=== PATIENT | female | born 1980 | race American Indian/Alaskan Native ===

== ENCOUNTER 2018-09-28 17:10 | Emergency (ER) | payer BC, OTHER ==
[~2018-09-28] VITALS: Ht 162.6 cm; Wt 109.1 kg
[2018-09-28 17:51] LABS: BASOPHILS # (AUTO) 0.1 X10'3 (0-0.2); BASOPHILS % (AUTO) 0.7 % (0-1); EOSINOPHILS # (AUTO) 0.1 X10'3 (0-0.9); EOSINOPHILS % (AUTO) 0.7 % (0-6); HEMATOCRIT 44.8 % (35.0-45.0); HEMOGLOBIN 14.9 g/dl (12.0-16.0); MEAN CORPUSCULAR HEMOGLOBIN 30.4 PG (27.0-31.0); MEAN CORPUSCULAR HGB CONC 33.2 g/dL (33.0-36.5); MEAN CORPUSCULAR VOLUME 91.8 FL (78-98); MEAN PLATELET VOLUME 7.3 FL (7.4-10.4); MONOCYTES # (AUTO) 0.9 X10'3 (0-0.9); MONOCYTES % (AUTO) 6.9 % (2-12); NEUTROPHILS # (AUTO) 9.1 X10'3 (1.8-7.7); NEUTROPHILS % (AUTO) 68.7 % (42-75); PLATELET COUNT 310 X10'3 (140-440); RED BLOOD COUNT 4.88 X10'6 (4.20-5.60); RED CELL DISTRIBUTION WIDTH 13.2 % (11.5-14.5); WHITE BLOOD COUNT 13.2 X10'3 (4.5-11.0)
[2018-09-28] MEDS ORDERED: LORazepam 2 mg/ml vial IV ONE (18:00)
[2018-09-28] MEDS ORDERED: normal saline 1000ML IV soln IVB ONE (18:00)
[2018-09-28 18:10] LABS: PARTIAL THROMBOPLASTIN TIME 29 SECONDS (22-32)
[2018-09-28 18:26] LABS: ALANINE AMINOTRANSFERASE 23 U/L (12-78); ALBUMIN 3.7 G/DL (3.4-5.0); ALBUMIN/GLOBULIN RATIO 0.9 (1.1-1.5); ALKALINE PHOSPHATASE 87 IU/L (46-116); ANION GAP 15 (8-16); ASPARTATE AMINO TRANSFERASE 17 U/L (10-37); BILIRUBIN,TOTAL 0.5 MG/DL (0.1-1.0); BLOOD UREA NITROGEN 7 MG/DL (7-18); CALCIUM 9.5 MG/DL (8.5-10.1); CHLORIDE 101 MMOL/L (99-107); GLUCOSE 101 MG/DL (70-104); POTASSIUM 3.9 MMOL/L (3.5-5.1); SODIUM 136 MMOL/L (135-145); TOTAL CARBON DIOXIDE 19.8 MMOL/L (24-32); eGFR 62 ML/MIN
[2018-09-28 18:59] VITALS: BP 126/87
[2018-09-28 19:16] LABS: CLARITY,URINE CLEAR (Clear); COLOR,URINE YELLOW (Yellow); GLUCOSE, URINE NEGATIVE (Neg); KETONES,URINE 15 mg/dl (Neg); LEUKOCYTE ESTERASE ,URINE NEGATIVE (Neg); NITRITES, URINE NEGATIVE (Neg); OCCULT BLOOD,URINE TRACE-INTACT (Neg); PROTEIN,URINE NEGATIVE (Neg); UROBILINOGEN,URINE 0.2 E.U/dL (0.2-1.0)
[2018-09-28 19:23] LABS: BACTERIA,URINE NONE SEEN /HPF (Neg); RBC,URINE 0-2 /HPF (0-2); SQUAMOUS EPITHELIAL CELL,UR FEW /LPF (FEW); UA COLLECTION TYPE CLN CATCH MIDSTREAM; WBC,URINE NONE SEEN /HPF (0-4)
[2018-09-28 19:32] LABS: URINE HCG NEGATIVE (NEG)
== END 2018-09-28 20:14 | disposition home or self-care (01) ==
LOC: ER 17:11
DX: F10.239 Alcohol dependence with withdrawal, unspecified (principal); N93.9 Abnormal uterine and vaginal bleeding, unspecified; R00.0 Tachycardia, unspecified; R00.2 Palpitations; R20.0 Anesthesia of skin; R79.1 Abnormal coagulation profile; F12.90 Cannabis use, unspecified, uncomplicated; F17.200 Nicotine dependence, unspecified, uncomplicated; Y90.9 Presence of alcohol in blood, level not specified
CPT/HCPCS: 36415; 71046; 80053; 81001; 81025; 84484; 85025; 85610; 85730; 93005; 96374; 99284; J2060; J7030

== ENCOUNTER 2019-07-01 13:16 | Outpatient (CLI) | payer MEDICAID, OTHER | END 2019-07-01 23:59 | disposition home or self-care (01) | LOC: LAB 13:16 | PROVIDERS: ATTEND Obstetrics & Gynecology Hospice and Palliative Medicine | DX: Z34.00 Encounter for supervision of normal first pregnancy, unspecified trimester (principal) | CPT/HCPCS: 36415; 84702 ==

== ENCOUNTER 2019-07-03 14:18 | Outpatient (CLI) | payer MEDICAID | END 2019-07-03 23:59 | disposition home or self-care (01) | LOC: LAB 14:18 | PROVIDERS: ATTEND Obstetrics & Gynecology Hospice and Palliative Medicine | DX: Z32.01 Encounter for pregnancy test, result positive (principal) | CPT/HCPCS: 36415; 84702 ==

== ENCOUNTER 2019-07-19 08:33 | Emergency (ER) | payer BC, MEDICAID, OTHER ==
[~2019-07-19] VITALS: Ht 162.6 cm; Wt 114.4 kg
[2019-07-19 08:35] VITALS: BP 158/111
[2019-07-19] MEDS ORDERED: acetaminophen 325mg tablet PO ONE (09:40)
[2019-07-19] MEDS ORDERED: TAM75C PO (09:55)
[2019-07-19] MEDS ORDERED: BENZ-16 PO (09:55)
== END 2019-07-19 10:06 | disposition home or self-care (01) ==
LOC: ER 08:34
DX: J11.1 Influenza due to unidentified influenza virus with other respiratory manifestations (principal); F12.90 Cannabis use, unspecified, uncomplicated; Z72.89 Other problems related to lifestyle; Z79.899 Other long term (current) drug therapy
CPT/HCPCS: 87502; 87503; 99283

== ENCOUNTER 2020-03-26 07:26 | Emergency (ER) | payer OTHER ==
[~2020-03-26] VITALS: Ht 162.6 cm; Wt 114.0 kg
--- NOTE | 2020-03-26 07:58 | NUR ---
Discussed pt's pain w/ stacey Cooley; new order for Zofran and Morphine received.
[2020-03-26] MEDS ORDERED: ondansetron/PF 4mg/2ml inj IV ONE (08:00)
[2020-03-26] MEDS ORDERED: morphine 4 MG/ML inj SYRINge IV ONE (08:00)
[2020-03-26 08:08] LABS: BASOPHILS # (AUTO) 0.1 X10'3 (0-0.2); BASOPHILS % (AUTO) 0.7 % (0-1); EOSINOPHILS # (AUTO) 0.2 X10'3 (0-0.9); EOSINOPHILS % (AUTO) 1.9 % (0-6); HEMATOCRIT 42.9 % (35.0-45.0); HEMOGLOBIN 14.5 g/dl (12.0-16.0); LYMPHOCYTES # (AUTO) 3.7 X10'3 (1.1-4.8); MEAN CORPUSCULAR HEMOGLOBIN 33.2 PG (27.0-31.0); MEAN CORPUSCULAR HGB CONC 33.8 g/dL (33.0-36.5); MEAN CORPUSCULAR VOLUME 98.4 FL (78-98); MEAN PLATELET VOLUME 7.5 FL (7.4-10.4); MONOCYTES # (AUTO) 0.8 X10'3 (0-0.9); MONOCYTES % (AUTO) 8.7 % (2-12); NEUTROPHILS % (AUTO) 45.7 % (42-75); PLATELET COUNT 277 X10'3 (140-440); RED BLOOD COUNT 4.36 X10'6 (4.20-5.60); RED CELL DISTRIBUTION WIDTH 13.4 % (11.5-14.5); WHITE BLOOD COUNT 8.6 X10'3 (4.5-11.0)
[2020-03-26] MEDS ORDERED: normal saline 1000ML IV soln IVB ONE (08:20)
[2020-03-26] MEDS ORDERED: pantoprazole 40 MG vial IV ONE (08:20)
[2020-03-26 08:35] LABS: CLARITY,URINE CLEAR (Clear); COLOR,URINE YELLOW (Yellow); GLUCOSE, URINE NEGATIVE (Neg); KETONES,URINE NEGATIVE (Neg); LEUKOCYTE ESTERASE ,URINE NEGATIVE (Neg); NITRITES, URINE NEGATIVE (Neg); OCCULT BLOOD,URINE LARGE (Neg); PROTEIN,URINE NEGATIVE (Neg); URINE HCG NEGATIVE (NEG); UROBILINOGEN,URINE 0.2 E.U/dL (0.2-1.0)
[2020-03-26 08:38] LABS: UA COLLECTION TYPE STRAIGHT CATH
[2020-03-26 08:39] LABS: BACTERIA,URINE FEW /HPF (Neg); MUCUS STRANDS FEW /LPF (Neg); RBC,URINE 20-50 /HPF (0-2); SQUAMOUS EPITHELIAL CELL,UR MODERATE /LPF (FEW); WBC,URINE 0-4 /HPF (0-4)
[2020-03-26 08:52] LABS: ALANINE AMINOTRANSFERASE 50 U/L (12-78); ALBUMIN 3.3 G/DL (3.4-5.0); ALBUMIN/GLOBULIN RATIO 0.8 (1.1-1.5); ALKALINE PHOSPHATASE 82 IU/L (46-116); ANION GAP 12 (8-16); BILIRUBIN,TOTAL 0.3 MG/DL (0.1-1.0); BLOOD UREA NITROGEN 8 MG/DL (7-18); BUN/CREATININE RATIO 8.8 (6.6-38.0); CALCIUM 8.3 MG/DL (8.5-10.1); CHLORIDE 105 MMOL/L (99-107); CREATININE 0.91 MG/DL (0.40-0.90); GLUCOSE 141 MG/DL (70-104); LIPASE 128 U/L (73-393); SODIUM 140 MMOL/L (135-145); TOTAL CARBON DIOXIDE 23.2 MMOL/L (24-32); TOTAL PROTEIN 7.5 G/DL (6.4-8.2); eGFR 69 ML/MIN
[2020-03-26 08:53] LABS: POTASSIUM 4.1 MMOL/L (3.5-5.1)
[2020-03-26 09:03] LABS: ASPARTATE AMINO TRANSFERASE 50 U/L (10-37)
[2020-03-26] MEDS ORDERED: ketorolac tromethamine 15mg/ml inj. IV ONE (09:25)
[2020-03-26 11:15] VITALS: BP 119/87
[2020-03-26] MEDS ORDERED: FLO0.4C PO (11:22)
[2020-03-26] MEDS ORDERED: HYDR-3965 PO (11:22)
[2020-03-26] MEDS ORDERED: ONDA8TAB13 PO (11:22)
[2020-03-26] MEDS ORDERED: tamsulosin 0.4mg capsule PO SCH (11:25)
[2020-03-26] MEDS ORDERED: morphine 4 MG/ML inj SYRINge IM ONE (11:30)
[2020-03-26] MEDS ORDERED: NORE0.3520 PO (18:53)
[2020-03-26] MEDS ORDERED: LISI-604 PO (20:17)
[2020-03-26] MEDS ORDERED: RISP1TAB3 PO (20:17)
== END 2020-03-26 12:05 | disposition home or self-care (01) ==
LOC: ER 07:26
DX: N20.0 Calculus of kidney (principal); I10 Essential (primary) hypertension; F17.200 Nicotine dependence, unspecified, uncomplicated; F12.10 Cannabis abuse, uncomplicated; Z91.040 Latex allergy status; Z79.899 Other long term (current) drug therapy
CPT/HCPCS: 36415; 74176; 80053; 81001; 81025; 83690; 85025; 96372; 96374; 96375; 99285; C9113; J1885; J2270; J2405; J7030; 99284

== ENCOUNTER 2020-03-29 18:12 | Emergency (ER) | payer OTHER ==
[~2020-03-29] VITALS: Ht 162.6 cm; Wt 117.7 kg
[~2020-03-29 18:12] MED LIST: FLO0.4C PO; HYDR-3965 PO; LISI-604 PO; NORE0.3520 PO; ONDA8TAB13 PO; RISP1TAB3 PO
[2020-03-29 18:37] VITALS: BP 163/111
[2020-03-29 18:54] LABS: BASOPHILS % (AUTO) 0.3 % (0-1); EOSINOPHILS # (AUTO) 0.1 X10'3 (0-0.9); EOSINOPHILS % (AUTO) 0.5 % (0-6); HEMATOCRIT 40.6 % (35.0-45.0); HEMOGLOBIN 13.8 g/dl (12.0-16.0); LYMPHOCYTES # (AUTO) 1.4 X10'3 (1.1-4.8); LYMPHOCYTES % (AUTO) 10.8 % (21-51); MEAN CORPUSCULAR HEMOGLOBIN 33.5 PG (27.0-31.0); MEAN CORPUSCULAR HGB CONC 33.9 g/dL (33.0-36.5); MEAN PLATELET VOLUME 7.2 FL (7.4-10.4); MONOCYTES % (AUTO) 7.2 % (2-12); NEUTROPHILS # (AUTO) 10.8 X10'3 (1.8-7.7); NEUTROPHILS % (AUTO) 81.2 % (42-75); PLATELET COUNT 274 X10'3 (140-440); WHITE BLOOD COUNT 13.4 X10'3 (4.5-11.0)
[2020-03-29 19:00] LABS: CLARITY,URINE CLEAR (Clear); COLOR,URINE STRAW (Yellow); GLUCOSE, URINE NEGATIVE (Neg); KETONES,URINE NEGATIVE (Neg); LEUKOCYTE ESTERASE ,URINE NEGATIVE (Neg); NITRITES, URINE NEGATIVE (Neg); OCCULT BLOOD,URINE TRACE-INTACT (Neg); PH,URINE 5.5 (4.8-8.0); PROTEIN,URINE NEGATIVE (Neg); UROBILINOGEN,URINE 0.2 E.U/dL (0.2-1.0)
[2020-03-29 19:02] LABS: URINE HCG NEGATIVE (NEG)
[2020-03-29 19:10] LABS: ALANINE AMINOTRANSFERASE 38 U/L (12-78); ALBUMIN 3.4 G/DL (3.4-5.0); ALBUMIN/GLOBULIN RATIO 0.8 (1.1-1.5); ALKALINE PHOSPHATASE 78 IU/L (46-116); ANION GAP 11 (8-16); ASPARTATE AMINO TRANSFERASE 33 U/L (10-37); BILIRUBIN,TOTAL 0.8 MG/DL (0.1-1.0); BLOOD UREA NITROGEN 7 MG/DL (7-18); BUN/CREATININE RATIO 6.4 (6.6-38.0); CALCIUM 9.1 MG/DL (8.5-10.1); CHLORIDE 98 MMOL/L (99-107); GLUCOSE 106 MG/DL (70-104); LIPASE 55 U/L (73-393); POTASSIUM 3.8 MMOL/L (3.5-5.1); SODIUM 135 MMOL/L (135-145); TOTAL CARBON DIOXIDE 26.3 MMOL/L (24-32); TOTAL PROTEIN 7.9 G/DL (6.4-8.2); eGFR 55 ML/MIN
[2020-03-29 19:24] LABS: UA COLLECTION TYPE CLN CATCH MIDSTREAM
[2020-03-29 19:25] LABS: BACTERIA,URINE NONE SEEN /HPF (Neg); RBC,URINE 0-2 /HPF (0-2); SQUAMOUS EPITHELIAL CELL,UR FEW /LPF (FEW); WBC,URINE NONE SEEN /HPF (0-4)
--- NOTE | 2020-03-29 19:37 | NUR ---
PT IS RESTING QUIETLY ON GURNEY, WAITING TO BE EVALUATED
[2020-03-29] MEDS ORDERED: oxyCODONE/APAP 5-325mg tablet PO ONE (20:30)
[2020-03-29] MEDS ORDERED: IBUP-1985 PO (21:55)
[2020-03-29] MEDS ORDERED: OXYC-145 PO (21:55)
[2020-03-29] MEDS ORDERED: [UNRECOGNIZED DRUG - CODE] PO (22:08)
== END 2020-03-29 22:13 | disposition home or self-care (01) ==
LOC: ER 18:13
DX: R10.84 Generalized abdominal pain (principal); I10 Essential (primary) hypertension; F12.90 Cannabis use, unspecified, uncomplicated; Z72.89 Other problems related to lifestyle; Z91.040 Latex allergy status; Z79.899 Other long term (current) drug therapy
CPT/HCPCS: 36415; 76775; 80053; 81001; 81025; 83690; 85025; 99284

== ENCOUNTER 2023-05-21 14:14 | Emergency (ER) | payer BC, OTHER ==
[~2023-05-21] VITALS: Ht 162.6 cm; Wt 105.5 kg
[~2023-05-21 14:14] MED LIST changes: -FLO0.4C PO; -HYDR-3965 PO; +IBUP-1985 PO; -LISI-604 PO; +LISI5TAB22 PO; +OXYC-145 PO; -RISP1TAB3 PO; +RISP1TAB98 PO; +[UNRECOGNIZED DRUG - CODE] PO
[2023-05-21] MEDS ORDERED: IBUP-1984 PO (16:51)
[2023-05-21] MEDS ORDERED: AZIT-21 PO (16:51)
[2023-05-21] MEDS ORDERED: PRED20TA PO (16:51)
[2023-05-21 17:06] LABS: STREP A SCREEN NEGATIVE (Neg)
[2023-05-21 17:08] VITALS: BP 148/108; PULSE 94; RESP 16; TEMP 98.3; O2SAT 99
== END 2023-05-21 17:12 | disposition home or self-care (01) ==
LOC: ER 14:15
DX: J03.90 Acute tonsillitis, unspecified (principal); Z20.822 Contact with and (suspected) exposure to COVID-19; I10 Essential (primary) hypertension; Z91.040 Latex allergy status; Z79.899 Other long term (current) drug therapy
CPT/HCPCS: 36415; 87081; 87502; 87503; 87811; 87880; 99283

== ENCOUNTER 2024-01-18 03:05 | Inpatient (IN) | payer BC, MEDICAID, OTHER ==
[~2024-01-18] VITALS: Ht 162.6 cm; Wt 93.8 kg
[~2024-01-18 03:05] MED LIST changes: +ONDA-245 PO; -ONDA8TAB13 PO; +RISP-31 PO; -RISP1TAB98 PO
--- NOTE | 2024-01-18 03:17 | NUR ---
POISON CONTROL CONTACTED BY DESTINEE VASQUEZ. SUPPORTIVE CARE, EKG AND LABS REQUESTED BY POISON CONTROL. RECOMMENDED- FOR EKG- WATCH FOR QT PROLONGATION, TACHYCARDIA, BRADYCARDIA, HYPOTENSION AND HYPERTENSION.
--- NOTE | 2024-01-18 03:21 | NUR ---
WHEN SPEAKING WITH PT- SHE STATES SHE OVERDOSED TO "SEE WHAT WOULD HAPPEN AND DID NOT CARE IF SHE SHE DOES NOT WANT TO LIVE" AND HAS HAD SUICIDAL THOUGHTS IN THE PAST BUT NO ATTEMPTES OTHER THAN CUTTING. AWARE.
--- NOTE | 2024-01-18 03:22 | NUR ---
NEED FOR 1:1 SITTER- CHARGE NOTIFIED.
--- NOTE | 2024-01-18 03:29 | NUR ---
PATIENTS HOME MEDICATIONS TRAZADONE, LORAZAPAM, AND BUSPAR GIVEN TO MOTHER BY LEAD SUPPLY WORKER.
[2024-01-18 03:43] LABS: BASOPHILS # (AUTO) 0.1 X10'3 (0-0.2); BASOPHILS % (AUTO) 0.9 % (0-1); EOSINOPHILS # (AUTO) 0.1 X10'3 (0-0.9); EOSINOPHILS % (AUTO) 1.1 % (0-6); HEMATOCRIT 45.3 % (35.0-45.0); HEMOGLOBIN 15.2 g/dl (12.0-16.0); LYMPHOCYTES # (AUTO) 4.4 X10'3 (1.1-4.8); LYMPHOCYTES % (AUTO) 42.5 % (21-51); MEAN CORPUSCULAR HEMOGLOBIN 30.9 PG (27.0-31.0); MEAN CORPUSCULAR HGB CONC 33.6 g/dL (33.0-36.5); MEAN CORPUSCULAR VOLUME 91.9 FL (78-98); MEAN PLATELET VOLUME 7.5 FL (7.4-10.4); MONOCYTES # (AUTO) 0.6 X10'3 (0-0.9); MONOCYTES % (AUTO) 5.5 % (2-12); NEUTROPHILS # (AUTO) 5.2 X10'3 (1.8-7.7); PLATELET COUNT 270 X10'3 (140-440); RED BLOOD COUNT 4.93 X10'6 (4.20-5.60); RED CELL DISTRIBUTION WIDTH 13.9 % (11.5-14.5); WHITE BLOOD COUNT 10.3 X10'3 (4.5-11.0)
[2024-01-18 03:51] LABS: ALANINE AMINOTRANSFERASE 15 U/L (12-78); ALBUMIN 3.8 G/DL (3.4-5.0); ALKALINE PHOSPHATASE 86 IU/L (46-116); ANION GAP 15 (8-16); ASPARTATE AMINO TRANSFERASE 15 U/L (10-37); BILIRUBIN,TOTAL 0.3 MG/DL (0.1-1.0); BLOOD UREA NITROGEN 11 MG/DL (7-18); BUN/CREATININE RATIO 13.6 (10.0-20.0); CALCIUM 8.4 MG/DL (8.5-10.1); CHLORIDE 105 MMOL/L (99-107); CREATININE 0.81 MG/DL (0.40-0.90); ETHANOL 253 MG/DL (<10); GLUCOSE 84 MG/DL (70-104); MAGNESIUM 2.1 MG/DL (1.5-2.4); POTASSIUM 3.8 MMOL/L (3.5-5.1); SALICYLATE 3.6 MG/DL (4.0-20.0); SODIUM 143 MMOL/L (135-145); TOTAL PROTEIN 7.8 G/DL (6.4-8.2); eCRCL 90 ML/MIN; eGFR 77 ML/MIN
[2024-01-18 03:56] LABS: ACETAMINOPHEN < 2.0 UG/ML (10-30)
[2024-01-18] MEDS: normal saline 1000ml 1,000 ML IV ONE (05:51)
[2024-01-18 06:44] LABS: URINE HCG NEGATIVE (NEG)
[2024-01-18 07:00] LABS: URINE AMPHETAMINE SCREEN NEGATIVE (Neg); URINE BARBITUATE SCREEN NEGATIVE (Neg); URINE BENZODIAZEPINES SCREEN NEGATIVE (Neg); URINE CANNABINOID SCREEN NEGATIVE (Neg); URINE COCAINE SCREEN NEGATIVE (Neg); URINE METHADONE SCREEN NEGATIVE (Neg); URINE OPIATE SCREEN NEGATIVE (Neg); URINE PHENCYCLIDINE SCREEN NEGATIVE (Neg)
[2024-01-18] MEDS ORDERED: BUSP10TA11 PO (07:21)
[2024-01-18] MEDS ORDERED: TRAZ-251 PO (07:21)
[2024-01-18] MEDS ORDERED: LORA-268 PO (07:21)
[2024-01-18] MEDS ORDERED: SEMA1PEN3 SUBCUT (07:24)
[2024-01-18] MEDS ORDERED: NALTREXONE (07:26)
[2024-01-18] MEDS ORDERED: METF-1203 PO (07:28)
[2024-01-18] MEDS ORDERED: CETI10TA19 PO (07:29)
--- NOTE | 2024-01-18 09:54 | NUR ---
PER KIMBERLY FROM POISON CONTROL, REPEAT EKG FOR NEW QTC. IF TRENDING DOWNWARD FROM INITIAL EKG QTC OF 517 PATIENT OK TO BE CLEARED. CURRENT QTC 445. PER RAS RICHARDS, PATIENT IS MEDICALLY CLEARED.
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
--- NOTE | 2024-01-18 12:26 | NUR ---
Patient continues to sleep in supine position. Respirations are even and nonlabored. Patient in view of nursing station. Will continue to monitor.
--- NOTE | 2024-01-18 13:24 | NUR ---
Patient walked independently from restroom back to bed. Patient wants water, which will be provided.
--- NOTE | 2024-01-18 13:30 | NUR ---
relieving RN for lunch, pt is resting quietly on bed, sipping water, kimberly well no n/v
--- NOTE | 2024-01-18 13:39 | NUR ---
pt is eating lunch,
--- NOTE | 2024-01-18 14:16 | NUR ---
[facility] here evaluating patient.
--- NOTE | 2024-01-18 16:00 | NUR ---
IV taken out of right forearm.
--- NOTE | 2024-01-18 17:14 | NUR ---
Patient up to the restroom.
--- NOTE | 2024-01-18 17:44 | NUR ---
Patient's mother Naheed is at bedside talking with patient.
--- NOTE | 2024-01-18 19:15 | NUR ---
Patient interviewed 1:1 at bedside. Patient is oriented X4. Patients mother is at bedside. Patient is very cooperative. She makes direct eye contact. She speaks in a normal voice and rhythm. Patient complains of depression. She denies S/I tonight. She denies H/I, she states no hallucinations. She complains of a "foggy," brain sensation. Some indigestion present along with anxiety. Pepsid and Librium will be given. Report will be given to CHRISTINA Bustamante in Behavioral Health.
[2024-01-18] MEDS: chlordiazePOXIDE 25mg capsule PO ONE (20:08)
[2024-01-18] MEDS: famotidine 20mg tablet PO ONE (20:09)
[2024-01-18] MEDS ORDERED: loperamide 2mg capsule PO PRN (21:00)
[2024-01-18] MEDS: triamcinolone acetonide 0.5% cream 15gm TP SCH (21:00)
[2024-01-18] MEDS ORDERED: acetaminophen 325mg tablet PO PRN (21:00)
[2024-01-18 21:31] VITALS: BP 145/102; PULSE 88; RESP 20; TEMP 97.8; O2SAT 88
[2024-01-18 21:46] VITALS: RESP 20; O2SAT 95
[2024-01-18] MEDS: traZODone 50mg tablet PO SCH (22:30)
[2024-01-18] MEDS: acetaminophen 325mg tablet PO PRN (22:30)
[2024-01-18] MEDS: cetirizine 10mg tablet PO SCH (22:30)
[2024-01-18] MEDS: ondansetron 4mg rapidly disintigrating tab PO PRN (22:30)
[2024-01-18] MEDS: LORazepam 1 MG tablet PO PRN (22:30)
[2024-01-18] MEDS: SEMAGLUTIDE 1 MG/0.75 ML SQ SCH (22:45)
[2024-01-18] MEDS ORDERED: CETI10TA14 PO (22:49)
--- NOTE | 2024-01-18 22:58 | NUR ---
Nursing Admission Note: The patient is a 43 year old female admitted from the ER on a 5150 hold for danger to self. She has relapsed on ETOH and her BA in the ER was 253. while intoxicated she took an overdose of her prescription medications, Buspar, Trazodone, and Ativan. She stated her current stressors are a recent divorce, being unemployed, being a single mother to her 16 year old son and poor relationship with her biological father. She denied that she felt suicidal on admit but stated she has been feeling suicidal off and on even when she is not drinking. She denies previous psychiatric inpatient admissions. She was alert, oriented and cooperative. CIWA score on admit was 17 and ativan one mg given. She reports hx of a withdrawal seizure in May of this year.
[2024-01-19] VITALS (8 sets, daily range): BP systolic 132–146; BP diastolic 91–104; PULSE 69–86; RESP 16–18; TEMP 97.8–98.8; O2SAT 92–99
[2024-01-19] MEDS ORDERED: risperiDONE 0.5mg tablet PO SCH (08:00)
[2024-01-19] MEDS ORDERED: busPIRone 5mg tablet PO SCH (08:00)
[2024-01-19 08:24] LABS: CHOL/HDL RATIO 3.3 (0.00-4.99); CHOLESTEROL 140 MG/DL (0-200); HDL CHOLESTEROL 43 MG/DL (35-60); LDL CHOLESTEROL 69 MG/DL (50-100); TRIGLYCERIDES 164 MG/DL (20-135)
[2024-01-19 08:30] LABS: HEMOGLOBIN A1C 4.8 % (4.5-6.2)
[2024-01-19] MEDS: nicotine 21mg patch - 24 hr TD SCH (09:41)
[2024-01-19] MEDS: metFORMIN 500mg tablet PO ONE (09:41)
[2024-01-19] MEDS: busPIRone 5mg tablet PO SCH (09:42)
[2024-01-19] MEDS: risperiDONE 0.5mg tablet PO SCH (09:42)
[2024-01-19] MEDS: magnesium hydroxide 30ml (MOM) UD suspension PO PRN (16:07)
[2024-01-19] MEDS: chlordiazePOXIDE 5mg capsule PO SCH (16:07)
--- NOTE | 2024-01-19 16:51 | NUR ---
Nursing Progress Note: Sarah Problems: Depression, ETOH withdrawl, constipation Interventions: Performed 1:1 nursing assessment, provided medication administration, education, monitoring, active listening/therapeutic communication, Q15 minute rounding. Maintained a safe and supportive environment. Perform CIWA Q4. Response: Patient is pleasant and cooperative this shift, she is compliant with scheduled medication and 1:1 assessment. CIWA being performed Q4 hours, she reports that she is experiencing "some" anxiety/agitation, tremors, mild itching, headache, and visual disturbances. Librium introduced today, no AR/SE to note. Patient denies SI/HI, AVH, and paranoia at this time. She does complain of 6/10 depression and is interested in receiving an antidepressant and outpatient rehab for ETOH. Patient attended group on the patio and snack/meals in the community room. She is active on the unit while occasionally retreating to her room. Plan: Requires interruption of current crisis in a safe and therapeutic environment with possible medication adjustments. Addendum: 01/19/24 at 1742 by Marquita Thao RN SMITH documentation: I have reviewed and agree with all interventions, assessments performed and documented by SMITH Schuster. Addendum: 08/25/24 at 1743 by Marquita Thao RN SMITH documentation: I have reviewed and agree with all interventions, assessments performed and documented by SMITH Schuster.
--- NOTE | 2024-01-19 18:30 | NUR ---
Patient reports mild headache, intermittent. Declines PRN throughout this shift
[2024-01-19] MEDS: thiamine 100mg tablet PO SCH (20:28)
[2024-01-19] MEDS: traZODone 50mg tablet PO SCH (20:29)
[2024-01-19] MEDS: cetirizine 10mg tablet PO SCH (20:31)
[2024-01-19] MEDS: docusate sod 100mg capsule PO SCH (20:31)
[2024-01-19] MEDS: metFORMIN 500mg tablet PO SCH (20:32)
--- NOTE | 2024-01-19 23:19 | NUR ---
Nursing Progress Note: Problems: Depression, anxiety, alcohol withdrawals Interventions: One to one with the patient to assess severity of depressive symptoms and self harm risk. CIWA done. Medication administration and assessed for med side effects. She is on q 1 hour nursing rounds and q 15 minute safety checks. PRN Ativan given for vital sign elevation. Response: The patient has been up on the unit and has had some socialization with others. She was pleasant and cooperative with the evening nursing assessment. She continues to have tremors in her hands. Her HR was 102 and her BP was 144/108. She appears neatly groomed and appropriately dressed. She had a visit from her mother that she felt went well. She showered before going to bed for the night. She stated that she felt her day had gone well but that she had some fatigue from the medications. She stated her mood was depressed and hopeless and added that she is regretting choices she has made in her life. She denies active suicidal thoughts and that she does want to live but also at times has thoughts that she wants to go to sleep and not wake up. Psychotic symptoms are denied. She reports moderate anxiety. Plan: Continue plan of care.
[2024-01-20] VITALS (7 sets, daily range): BP systolic 121–156; BP diastolic 86–111; PULSE 81–91; RESP 14–20; TEMP 97.7–98.1; O2SAT 97–100
[2024-01-20] MEDS: multivitamins, therapeutics tablet PO SCH (08:42)
[2024-01-20] MEDS: folic acid 1mg tablet PO SCH (08:43)
[2024-01-20] MEDS: cloNIDine 0.1 mg tablet PO PRN (16:49)
[2024-01-20] MEDS: NICOTINE POLACRILEX 2 MG LOZENGE BC PRN (16:52)
--- NOTE | 2024-01-20 18:05 | NUR ---
Nursing Progress Note: Problems: ETOH withdrawal, constipation, depression Interventions: 1:1 assessment, establishment of rapport, therapeutic conversation, active listening, medication administration/education/monitoring, ensured contract for safety, constipation management, CIWA Q4H, blood pressure control, provided distraction, direction, positive reinforcement, and Q15 min safety checks. Response: Pt was up for breakfast. Pt was cooperative with her medications. Pt continues on CIWA Q4H. Pt continues on routine Librium. Pt's CIWA scores today: 6, 2, 2. Pt's bilateral hand tremors improved throughout the day. Pt's BP was elevated at 156/111 at 1200, she received her routine Librium. Rechecked pt's BP after an hour, it was down to 138/100. Pt was given PRN Ativan 1 mg at 1401 with good effect. Obtained order from Dr Shore for Clonidine 0.1 mg BID PRN Diastolic BP > 90. Pt's BP at 1630 was 135/93. She was given PRN Clonidine 0.1 mg at 1649 along with PRN MOM and a nicotine lozenge. Pt reports her last BM was 3 days ago. She was started on Colace 100 mg BID yesterday, she was given prune juice. Pt attended group and was present in the milieu socializing with peers and watching TV in the rec room. Pt rated her depression today at a 2/10. Pt denied SI/HI/AH/VH. Pt indicated that she is still experiencing severe alcohol cravings. She was on a medication at home Vivitrol injection to reduce alcohol cravings which she states was not effective. Plan: Crisis interruption, detox from ETOH, continued CIWA Q4H, monitor B/P, continued medications adjustments and monitoring, constipation management.
[2024-01-20] MEDS: chlordiazePOXIDE 25mg capsule PO SCH (20:09)
[2024-01-20] MEDS: divalproex sod 125mg tablet.DR PO SCH (20:10)
[2024-01-20] MEDS: thiamine 100mg tablet PO SCH (20:10)
--- NOTE | 2024-01-20 22:48 | NUR ---
Nursing Progress Note: Problems: Depression, anxiety, alcohol withdrawals Interventions: One to one with the patient to assess severity of depressive symptoms and self harm risk. CIWA done. Medication administration and assessed for med side effects. She is on q 1 hour nursing rounds and q 15 minute safety checks. PRN Ativan given for vital sign elevation.
--- NOTE | 2024-01-20 22:49 | NUR ---
Nursing Progress Note: Problems: Depression, anxiety, alcohol withdrawals Interventions: One to one with the patient to assess severity of depressive symptoms and self harm risk. CIWA done. Medication administration and assessed for med side effects. She is on q 1 hour nursing rounds and q 15 minute safety checks. She was started on colace and was given prune juice for complaints of constipation Response: The patient has been up on the unit. She is well groomed. She is social and friendly with staff and peers. She reports that her mood has improved and she is not feeling suicidal. She is making long range goals for her future and can verbalize things she wants to live for. Her anxiety is moderate. She is alert and oriented. No complaints of A/V hallucinations. Hand tremors less severe. She is medication compliant. Plan: Continue plan of care.
[2024-01-21] MEDS: LORazepam 0.5 MG tablet PO PRN (00:08)
[2024-01-21 07:00] VITALS: RESP 16; O2SAT 95
[2024-01-21 08:00] VITALS: BP 123/83; PULSE 79; RESP 16; TEMP 97; O2SAT 95
--- NOTE | 2024-01-21 16:35 | NUR ---
Nursing Progress Note: Sarah Problems: Depression, ETOH withdrawl, constipation Interventions: Performed 1:1 nursing assessment, provided medication administration, education, monitoring, active listening/therapeutic communication, Q15 minute rounding. Maintained a safe and supportive environment. Perform CIWA Q4. Response: Received this Pt in bed sleeping w/o distress at shift change. She was cooperative with vitals (wnl). Pt ate meals we;; and was reading and watching TV in Rec. room in the morning. Pt took scheduled meds throughout the day w/o issue. Pt received MOM r/t constipation with no results.She is pleasant and interactive while respectful and is willing to share thoughts. Pt is future oriented and wants to seek sobriety and recovery. Pt had CIWA scores of 5,4 today. Pt experiencing minor anxiety and tremors only. She did not request or need PRN meds for w/d sx's as of the writing of this note. Pt denies SI/HI/AH and VH at this time. She wants to get into recovery in an in-pt setting. She spoke of nbad experience at [facility] and perhaps [facility] could be where she goes. She spoke of her son who is staying with her mom. Pt visited with her mom this morning and it appeared supportive. She finished her book and showered in the afternoon. Plan: Requires interruption of current crisis in a safe and therapeutic environment with possible medication adjustments.
[2024-01-21 19:00] VITALS: RESP 18; O2SAT 98
[2024-01-21 20:00] VITALS: BP 113/85; PULSE 98; RESP 18; TEMP 97.3; O2SAT 98
[2024-01-21] MEDS: traZODone 50mg tablet PO PRN (21:05)
--- NOTE | 2024-01-22 03:52 | NUR ---
Nursing Progress Note: Sarah Problems: Depression, ETOH withdrawal, constipation Interventions: Performed 1:1 nursing assessment, provided medication administration, education, monitoring, active listening/therapeutic communication, Q15 minute rounding. Hourly nursing rounds. Maintained a safe and supportive environment. Perform CIWA Q4. Response: Pt is calm and cooperative at start of shift. Pt sits in rec room watching TV with other peers. Pt scored 2 on the 8pm CIWA. Score at midnight is also 2. Pt denies SI/HI/AVH. Pt endorses depression and some anxiety. Pt looking to get into a rehab facility for her drinking. Pt is medication compliant with PRN Trazodone 100mg and Ativan 0.5mg. Pt stated she has not had a BM for 4 days. Pt encouraged to drink water and ambulate. Pt is on Colace. Encouraged pt to take a suppository tomorrow morning. Monitor for safety. Plan: Requires interruption of current crisis in a safe and therapeutic environment with possible medication adjustments.
[2024-01-22 07:30] VITALS: BP 119/80; PULSE 84; RESP 18; TEMP 97.3; O2SAT 97
[2024-01-22] MEDS: aripiprazole 5mg tablet PO SCH (07:53)
[2024-01-22] MEDS: bisacodyl 10mg suppository rectal RC STA (09:04)
--- NOTE | 2024-01-22 15:16 | NUR ---
Initial: Pt admit for OD, major depression, and EtOH abuse, currently receiving routine Thiamine, Folic acid, and MVI. Pt has been eating well on 75 g CHO controlled diet, documented with 100% PO intake of meals. Per EMR pt with T2DM though A1c 4.8% with BG 84-87 mg/dL since admit. Message left for RN with recommendation for diet change to regular, diet has since been liberalized. LBM 01/21 documented as large, previously constipated with LBM 01/16. Pt started on routine Colace BID 01/18 and has received PRN MoM 01/18-01/20 and received one time Dulcolax suppository today. Pt also received prune juice per criminal judge. No nutrition intervention implemented at this time. Will continue to follow and make recommendations as appropriate. Recommendations: 1) Continue regular diet; A1c 4.8% 2) Routine and PRN bowel care given previous constipation x 5 days per EMR 3) Weekly scaled weights Addendum: 01/22/24 at [address] Amended: Links added.
--- NOTE | 2024-01-22 17:24 | NUR ---
Nursing Progress Note: Sarah Problems: Depression, ETOH withdrawal, Constipation Interventions: Performed 1:1 nursing assessment, provided medication administration, education, monitoring, active listening/therapeutic communication, Q15 minute rounding. Maintained a safe and supportive environment. Response: RN received pt. asleep in bed at change of shift. CIWA scored 0. Pt. awoke and took medication and ate breakfast in community room. CIWA discontinued by provider. 1:1 done at bedside, pt. denies SI/HI, A/V hallucinations. Pt. c/o constipation and given suppository with good effect. Pt. isolated to her room most of the AM. Pt. did attend groups. Pt. observed socializing with peers. Plan: Requires interruption of current crisis in a safe and therapeutic environment with possible medication adjustments.
[2024-01-22 19:00] VITALS: RESP 16; O2SAT 99
[2024-01-22 20:00] VITALS: BP 131/100; PULSE 95; RESP 16; TEMP 98.2; O2SAT 99
[2024-01-22] MEDS: mirtazapine 15mg tablet PO SCH (20:43)
[2024-01-22] MEDS: benzocaine (Anbesol) 12ml bottle MM PRN (22:30)
[2024-01-23] VITALS (8 sets, daily range): BP systolic 131–149; BP diastolic 100–113; PULSE 92–95; RESP 14–16; TEMP 97.5–98.3; O2SAT 97–99
--- NOTE | 2024-01-23 02:46 | NUR ---
Nursing Progress Note: Sarah Problems: Depression, ETOH withdrawal, Tooth Pain Interventions: Performed 1:1 nursing assessment, provided medication administration, education, monitoring, active listening/therapeutic communication, Q15 minute rounding. Maintained a safe and supportive environment. Response: Pt is received in her room where she is reading a book. Pt is calm and pleasant. Pt was taken off CIWA protocol. Pt stated she is feeling much better. Pt had a suppository on day shift and had good results except now pt is complaining of hemorrhoids. "I had a little blood when I wiped". Detasseling Crew Supervisor explained that this can happen. Pt denies feeling suicidal and had a very good conversation with her son. "My son turns 16 on 02/04". Pt does still feel depressed, mostly about how she failed her son. Pt was encouraged to be proud of herself for wanting to get help and go into a treatment program. Pt's BP was 131/100 and received Catapres 0.1mg with good results. Pt c/o tooth pain. "I think I need a root canal". Pt asked for topical cream. Tylenol 650mg given and ordered obtained for Anbesol. Pt attended snack but keep mostly to herself. Monitor for safety. Plan: Requires interruption of current crisis in a safe and therapeutic environment with possible medication adjustments.
[2024-01-23 09:59] LABS: BILIRUBIN,URINE NEGATIVE (Neg); CLARITY,URINE CLOUDY (Clear); COLOR,URINE YELLOW (Yellow); GLUCOSE, URINE NEGATIVE (Neg); KETONES,URINE NEGATIVE (Neg); LEUKOCYTE ESTERASE ,URINE LARGE (Neg); NITRITES, URINE NEGATIVE (Neg); OCCULT BLOOD,URINE MODERATE (Neg); PROTEIN,URINE TRACE mg/dl (Neg); UA COLLECTION TYPE NON-SPECIFIED; UROBILINOGEN,URINE 0.2 E.U/dL (0.2-1.0)
[2024-01-23 10:09] LABS: BACTERIA,URINE 2+ /HPF (Neg); SQUAMOUS EPITHELIAL CELL,UR FEW /LPF (FEW); WBC CLUMPS,URINE MANY /HPF (NEGATIVE); WBC,URINE TNTC /HPF (0-4)
--- NOTE | 2024-01-23 15:30 | NUR ---
Nursing Progress Note: Sarah Problems: Depression, ETOH withdrawl Interventions: Performed 1:1 nursing assessment, provided medication administration, education, monitoring, active listening/therapeutic communication, Q15 minute rounding. Maintained a safe and supportive environment. Response: Received this Pt in bed sleeping w/o distress at shift change. Pt cooperative with vitals; ate meals well; and took all scheduled meds w/o issue. Pt no longer on CIWA scale and she is not experiencing w/d sx's and is on Librium 25mg TID. She attended group today and participated in snack with others. She was seen in Rec. room watching TV with others and talking with room mate. Pt met with people from childrens services r/t her son and she reported it went well. Pt continues to deny SI/HI/AH and VH at this time. Pt c/o right side pain and burning upon urination, which she told . Urine for UA obtained and sent to lab. Pt pleasant and social with staff and others, and remains future oriented in conversation. Plan: Requires interruption of current crisis in a safe and therapeutic environment with possible medication adjustments.
[2024-01-23] MEDS ORDERED: CefTRIAXone/D5W-Rocephin 1gm 50 ML IV SCH (17:30)
[2024-01-23] MEDS: amox tr/potassium clavulanate 500mg/125mg TAB PO SCH (19:26)
--- NOTE | 2024-01-23 22:10 | NUR ---
Late entry: MOM was given with HS medication at 2025.
[2024-01-23] MEDS: lactulose 20gm/30ml cup PO PRN (22:24)
[2024-01-23] MEDS: mag hydrox/Alum hydrox/simeth 30ml oral suspension PO PRN (22:24)
--- NOTE | 2024-01-24 01:50 | NUR ---
Nursing Progress Note: Problems: Depression, ETOH withdrawal, HTN Interventions: Performed 1:1 nursing assessment, provided medication education/administration/monitoring, active listening/therapeutic communication, Q15 minute rounding. Maintained a safe and supportive environment. Response: Patient is pleasant and cooperative with care; compliant with medication. She was started on Augmentin PO for UTI; no apparent ASE noted. PRNs MOM and Lactulose for c/o constipation, Maalox for c/o indigestion, Clonidine for diastolic greater than 100 and Ativan for ETOH withdrawal provided this shift. 1900 BP: 149/113 HR: 93, 1999 BP:145/105 HR: 93 HS medications provided with her PRN Clonidine, 2100 BP: 149/107 HR 93 PRN Ativan was provided, 2145 BP: 146/108 HR: 92, 2240 BP: 132/102 HR: 92. Party Chief talked to her about Hx of taking BP medication and she reported being on Lisinopril 5mg for aprox 6yrs and aprox 1yr ago was taken off d/t her HR getting too low. Patient's skin was warm and sticky as if she had been sweating but was not sweating at this time. She denied nausea and declined feeling anxious. Patient reports "pressure" in her ABD (RLQ) and has been constipated. Patient denied SI, HI, A/VH; no apparent delusions expressed. She mostly self isolates in her room but talks with her roommate and comes out of her room too make needs known. Patient does appear to have difficulty sleeping. Plan: Requires interruption of current crisis in a safe and therapeutic environment with possible medication adjustments. Addendum: 01/24/24 at 0215 by Michelle Angulo LVN Nicotine patch was removed at med pass. Addendum: 01/24/24 at 0240 by Dianna Mohamud RN The documentation by assigned YARN EXAMINER SKEINS was reviewed
[2024-01-24 04:29] VITALS: BP 138/98
[2024-01-24 07:00] VITALS: RESP 18; O2SAT 98
[2024-01-24 07:30] VITALS: BP 125/87; PULSE 91; RESP 18; TEMP 97.4; O2SAT 98
--- NOTE | 2024-01-24 14:34 | NUR ---
Nursing Progress Note: Sarah Problems: Right sided abdomen pain, very mild depression/anxiety Interventions: Performed 1:1 nursing assessment, provided medication administration, education, monitoring, active listening/therapeutic communication, Q15 minute rounding. Maintained a safe and supportive environment. Response: Patient is pleasant and cooperative this shift, she is compliant with scheduled medication and 1:1 assessment. She denies SI/HI, AVH, and paranoia. Though she reports 3/10 anxiety and depression which has improved. She stated, "feeling good, slept good. I woke up early to see the sunrise." Patient complains of right sided abdomen pain and tenderness, controlled with PRN Tylenol. KUB obtained, no remarkable result. Patient received PRN MOM and lactulose which was successful. She reported great relief and gave this creative writer "10 thumbs up!" She is receiving antibiotics for UTI, no AR/SE to report at this time. Patient is active on the unit, she attended meals in the community room and occasionally retreated to her room to rest. Plan: Requires interruption of current crisis in a safe and therapeutic environment with possible medication adjustments. Addendum: 01/24/24 at 1546 by Jordan Brenner RN (Coop) SMITH documentation: I have reviewed and agree with all interventions, assessments performed and documented by Mariely MTZ.
[2024-01-24 19:00] VITALS: RESP 20; O2SAT 100
[2024-01-24 19:35] VITALS: BP 129/90; PULSE 97; RESP 20; TEMP 98.1; O2SAT 100
--- NOTE | 2024-01-25 01:46 | NUR ---
Nursing Progress Note: Sarah Problems: tooth irritation, , depression/anxiety Interventions: Performed 1:1 nursing assessment, provided medication administration, education, monitoring, active listening/therapeutic communication, Q15 minute rounding, hourly nurse rounds. Maintained a safe and supportive environment. PRN anbesol provided for tooth irritation, showered this shift. Response: Pt. received watching TV in the community room at change of shift. Pt. was out of her room and active on the unit this shift. She socializes with peers, participated in evening snack. Pt. is pleasant and cooperative. Pt. denies SI/HI/AH/VH. When asked about anxiety and depression she states "mild anxiety and depression 310". Pt. is medication compliant. Observed and appears sleeping without difficulty. Plan: continue care of plan
--- NOTE | 2024-01-25 02:09 | NUR ---
Documentation by assigned COAL CHEMIST was reviewed
[2024-01-25 07:00] VITALS: RESP 16; O2SAT 98
[2024-01-25 08:00] VITALS: BP 131/100; PULSE 81; RESP 16; TEMP 97.4; O2SAT 98
[2024-01-25] MEDS: levoFLOXACIN 500mg tablet PO SCH (13:49)
--- NOTE | 2024-01-25 16:57 | NUR ---
Nursing Progress Note: Sarah Problems: Depression/anxiety, elevated BP. Interventions: Performed 1:1 nursing assessment, provided medication administration, education, monitoring, active listening/therapeutic communication, Q15 minute rounding, hourly nurse rounds. Maintained a safe and supportive environment. PRN anbesol provided for tooth irritation, showered this shift. Response: Patient is awake in the rec room at the start of the shift. Interacts appropriately with staff and peers. DBP is elevated and PRN Clonidine is given per PRN order. Patient is cooperative with medication and 1:1 assessment. Denies any thoughts of harming herself or others. Denies any hallucinations. Continues to endorse depression and anxiety but does not require a PRN at this time. She naps after breakfast. Patient is noted writing on a notepad in her room and is somewhat isolative. Remains calm and cooperative. Plan: Continues to require interruption of current crisis in a safe and therapeutic environment until safe discharge is established. Addendum: 01/25/24 at 1709 by Jordan Prado) CHRISTINA COMMERCIAL PRODUCER documentation: I have reviewed and agree with all interventions, assessments performed and documented by [facility].
[2024-01-25] MEDS: aspirin 81mg, enteric-coated 1 TAB TABLET.DR PO ONE (17:11)
[2024-01-25 19:00] VITALS: BP 133/94; PULSE 101; RESP 12; TEMP 97.4; O2SAT 98
--- NOTE | 2024-01-25 23:22 | NUR ---
Nursing Progress Note: Sarah Problems: HTN, depression, anxiety Interventions: Performed 1:1 nursing assessment, provided medication administration, education, monitoring, active listening/therapeutic communication, Q15 minute rounding, hourly nurse rounds. Maintained a safe and supportive environment. HTN Response: Pt. received sitting quietly in the recreation room watching TV. Pt. is calm and cooperative. Pt. had a visit this evening with her mother and step father. Pt. reports having a good day. She denies SI/HI/AH/VH. Pt. endorses 6/10 anxiety level and 3/10 depression. This telegraphic typewriter operator chief offered pt. PRN anti anxiety medication, pt. declined the need for a PRN stating "I'm okay, I'm pretty tired and going to bed soon". Pt. is medication compliant. Pt. is observed and appears sleeping without difficulty. Plan: continue plan of care Addendum: 01/26/24 at 0534 by Shawnee Diop RN I have reviewed the GANG VIBRATOR OPERATOR note. Shawnee Diop RN
--- NOTE | 2024-01-25 23:36 | NUR ---
Ozempic shot pt. reports that she last received her Ozempic shot on (01/22/24) and that she takes it every Saturday.
[2024-01-26 07:00] VITALS: RESP 16; O2SAT 98
[2024-01-26 08:00] VITALS: BP 120/87; PULSE 90; RESP 16; TEMP 98.1; O2SAT 98
[2024-01-26] MEDS: lactobacillus rhamnosus 10,000 MMU CELLS/CAPSULE PO SCH (08:39)
[2024-01-26] MEDS: lisinopril 2.5mg tablet PO SCH (08:41)
--- NOTE | 2024-01-26 16:25 | NUR ---
Nursing Progress Note: Sarah Problems: Depression/anxiety, elevated BP. Interventions: Performed 1:1 nursing assessment, provided medication administration, education, monitoring, active listening/therapeutic communication, Q15 minute rounding, hourly nurse rounds. Maintained a safe and supportive environment. Monitoring for signs of ETOH withdrawal. PRN anbesol provided for tooth irritation, showered this shift. Response: Patient was asleep at change of shift and up before breakfast. Patient states she feels a little shaky due to ETOH withdrawal, but no tremors nor any obvious signs of withdrawal were observed. Patient denies suicidal ideation but still has some depression. Patient had a BM today. Patient spends sometime in her room napping and then will be in the Rec Room watching T.V. with peers. Plan: Continues to require interruption of current crisis in a safe and therapeutic environment until safe discharge is established.
[2024-01-26] MEDS: busPIRone 5mg tablet PO SCH (17:59)
[2024-01-26 18:39] LABS: HIV ANTIBODY 1&2 RAPID NON-REACTIVE (Neg)
[2024-01-26 19:00] VITALS: RESP 16; O2SAT 99
[2024-01-26 19:16] VITALS: BP 124/88; PULSE 107; RESP 16; TEMP 97.2; O2SAT 99
--- NOTE | 2024-01-27 04:00 | NUR ---
Nursing Progress Note: Problems: Depression, Anxiety Interventions: Performed 1:1 nursing assessment, provided medication education/administration/monitoring, active listening/therapeutic communication, Q15 minute rounding. Maintained a safe and supportive environment. Response: Patient is pleasant and cooperative with care; compliant with medication. Patient denied SI, HI, A/VH; expressed intense moments of depression throughout her day. She reported needing to remove herself from the crowd and having a "good cry" in her room. Patient was social, participated in HS snack and showered prior to bed; observed sleeping and does not appear to be having difficulty. No Nicotine patch located. Plan: Requires interruption of current crisis in a safe and therapeutic environment with possible medication adjustments.
--- NOTE | 2024-01-27 04:22 | NUR ---
Agree with above charted assessment per SENIOR ACCOUNTS PAYABLE CLERK, will continue with careplan.
[2024-01-27 07:00] VITALS: RESP 16; O2SAT 100
[2024-01-27 08:00] VITALS: BP 135/97; PULSE 83; RESP 16; TEMP 98; O2SAT 97
[2024-01-27] MEDS: aspirin 81mg, enteric-coated 1 TAB TABLET.DR PO SCH (08:14)
[2024-01-27 12:51] VITALS: BP 142/96; PULSE 105
--- NOTE | 2024-01-27 16:10 | NUR ---
Nursing Progress Note: Sarah Problems: Depression/anxiety, UTI, hypertension, labile Interventions: Performed 1:1 nursing assessment, provided medication administration, education, monitoring, active listening/therapeutic communication, Q15 minute rounding, hourly nurse rounds. Maintained a safe and supportive environment. Monitoring for signs of ETOH withdrawal. Reassessment of vitals due to hypertension. Response: Received pt in the afternoon. Pt took afternoon medication cooperatively. Pt reports waves of depression, but no SI/HI or AVH. Pt is on an antibiotic for her UTI. Pt requested PRN nicotine lozenges. Pt ate meals in the community room. Pt states she has had anxiety today because she thought she might be leaving tomorrow and go to [facility] and she has a job interview on with [employer], but everything is up in the air today due to the Holiday. Pt states she had a few crying spells, but she's ok... this is normal for her. Pt denies needing any anxiety medication. After reviewing morning vitals retook pt's blood pressure/HR in the afternoon and administered PRN Clonidine per orders for diastolic of 96. During afternoon snack pt reported to this nurse that she felt very tired today. Reeducated pt on side effects of Clonidine, pt verbalized understanding. Will continue to monitor. Plan: Continues to require interruption of current crisis in a safe and therapeutic environment until safe discharge is established.
[2024-01-27 19:18] VITALS: BP 120/82; PULSE 96; RESP 18; TEMP 98.1; O2SAT 99
[2024-01-27 20:00] VITALS: RESP 18; O2SAT 99
--- NOTE | 2024-01-28 00:19 | NUR ---
Nursing Progress Note: Problems: Depression Interventions: Performed 1:1 nursing assessment, provided medication education/administration/monitoring, active listening/therapeutic communication, Q15 minute rounding. Maintained a safe and supportive environment. Response: Patient is pleasant and cooperative; compliant with medication. Nicotine patch removed. ABx Tx continued for UTI; no pain with urination reported. Patient denied SI, HI, A/VH; no apparent delusions expressed. She continues to express feelings with depression and tries to find things to help her cope. Patient was social with peers, watched TV in [place] and participated in HS snack prior to bed; observed sleeping and does not appear to be having difficulty. Plan: Requires interruption of current crisis in a safe and therapeutic environment with possible medication adjustments.
--- NOTE | 2024-01-28 04:14 | NUR ---
aGREE WITH ABOVE CHARTED ASSESSMENT PER mat gauger, WILL CONTINUE WITH CAREPLAN.
[2024-01-28 06:38] VITALS: RESP 16; O2SAT 100
[2024-01-28 07:00] VITALS: BP 131/96; PULSE 96; RESP 18; TEMP 97.6; O2SAT 100
[2024-01-28 13:24] LABS: CHLAMYDIA TRACHOMATIS, NAA Negative (Negative)
--- NOTE | 2024-01-28 15:11 | NUR ---
DISCHARGE PLAN Sarah is discharging tomorrow to [facility]. She has follow up scheduled with Kalyani Evans (Primary care and Psychiatry) and [facility] with her Recovery provider. Her mother will pick her up upon discharge. NAGA Nuñez
--- NOTE | 2024-01-28 16:09 | NUR ---
Nursing Progress Note: Sarah Problems: Depression/anxiety, UTI, hypertension, indigestion, reports epidsodes of crying Interventions: Performed 1:1 nursing assessment, provided medication administration, education, monitoring, active listening/therapeutic communication, Q15 minute rounding, hourly nurse rounds. Maintained a safe and supportive environment. Response: Received pt awake in her room. Pt states she likes to get up early and [place], "I used to drink at night and sleep all day so I'm really enjoying the sunrise." Pt cooperative with assessment; denies SI/HI and AVH. 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 Pt's diastolic was over 90 this morning, administered Clonidine with morning medications, pt took them all cooperatively. Pt active on the unit and social with peers. Pt endorses feeling anxious, depressed and states she had a few episodes of crying today. Pt states she was crying because of all the unknowns. Pt is able to cope without using PRN medications. Pt approached this RN in the afternoon requesting a PRN for indigestion, administered Maalox with good effect. Will continue to monitor. Plan: Discharge to [facility].
[2024-01-28] MEDS ORDERED: CETI10TA14 PO (18:51)
[2024-01-28] MEDS ORDERED: ANBESOL MM (18:51)
[2024-01-28] MEDS ORDERED: METF-1203 PO (18:51)
[2024-01-28] MEDS ORDERED: LISI2.5T14 PO (18:51)
[2024-01-28] MEDS ORDERED: LACT1CAP26 PO (18:51)
[2024-01-28] MEDS ORDERED: SEMA1PEN3 SUBCUT (18:51)
[2024-01-28] MEDS ORDERED: ASPI-1071 PO (18:51)
[2024-01-28] MEDS ORDERED: CHLO25CA10 PO (18:51)
[2024-01-28] MEDS ORDERED: ONDA-243 PO (18:51)
[2024-01-28] MEDS ORDERED: thiamine tablet PO (18:51)
[2024-01-28] MEDS ORDERED: TRAZ-251 PO (18:51)
[2024-01-28] MEDS ORDERED: LEVO-65 PO (18:51)
[2024-01-28] MEDS ORDERED: NICO-907 BC (18:51)
[2024-01-28] MEDS ORDERED: FOLI1TAB27 PO (18:51)
[2024-01-28] MEDS ORDERED: CLON0.1T2 PO (18:51)
[2024-01-28] MEDS ORDERED: DIVA125T2 PO (18:51)
[2024-01-28] MEDS ORDERED: NICO-687 TD (18:51)
[2024-01-28] MEDS ORDERED: RISP-31 PO (18:51)
[2024-01-28] MEDS ORDERED: DOCU100C40 PO (18:51)
[2024-01-28] MEDS ORDERED: ARIP5TAB53 PO (18:51)
[2024-01-28] MEDS ORDERED: MIRT-87 PO (18:51)
[2024-01-28 20:00] VITALS: BP 106/80; PULSE 76; RESP 16; TEMP 98.5; O2SAT 99
--- NOTE | 2024-01-29 00:51 | NUR ---
Nursing Progress Note: Problems: Depression Interventions: Performed 1:1 nursing assessment, provided medication education/administration/monitoring, active listening/therapeutic communication, Q15 minute rounding. Maintained a safe and supportive environment. Response: Patient is pleasant and cooperative with care; compliant with medication. PRN Ativan provided for anxiety. Patient continues to have facial redness but denied discomfort (no itchiness or raised areas). Encouraged to let staff know if it changes as she is on ABx for UTI. Patient denied SI, HI, A/VH; no apparent delusions expressed. She rated her depression 3/10. Patient expressed feeling safe to discharge and reported having a job interview at 1000. Later, she was expressing self-doubt and worried about failing. Patient socialized with peers, participated in HS snack and read in her room prior to bed; observed sleeping and does not appear to be having difficulty. Plan: Discharge 0800 to [facility]; her mother will be picking her up. Patient has a job interview at 1000 and F/U appointment with Primary Care.
--- NOTE | 2024-01-29 05:13 | NUR ---
Agree with above charted assessment per TRANSMISSION ASSEMBLER, will continue with careplan.
[2024-01-29 05:37] LABS: HEPATITIS C VIRUS ANTIBODY Non Reactive (Non Reactive)
[2024-01-29 07:00] VITALS: BP 132/83; PULSE 90; RESP 14; TEMP 98; O2SAT 99
[2024-01-29 07:09] VITALS: BP_SYST 132; PULSE 90
[2024-01-29 08:00] VITALS: RESP 14; O2SAT 99
[2024-01-29] MEDS ORDERED: BUSP10TA11 PO (08:11)
[2024-01-29] MEDS ORDERED: BUSP5TAB26 PO (08:11)
--- NOTE | 2024-01-29 08:23 | NUR ---
Discharge Note: Pt discharged to [facility], picked up by mother. Pt discharged with all belongings and signed all paperwork. Patient denies SI/HI and AVH. Patient is A&O X4, has a steady gait and is in no apparent distress.
== END 2024-01-29 08:30 | disposition home or self-care (01) | DRG 754 ==
LOC: ER 03:06 → ADULT MH 17:05
PROVIDERS: ADMIT Psychiatry & Neurology Psychiatry; ATTEND Psychiatry & Neurology Psychiatry
PROC: GZHZZZZ Group Psychotherapy (ICD-10-PCS; principal; 2024-01-24)
PROC: GZ51ZZZ Individual Psychotherapy, Behavioral (ICD-10-PCS; 2024-01-24)
DX: F32.9 Major depressive disorder, single episode, unspecified (principal); K76.0 Fatty (change of) liver, not elsewhere classified; E66.01 Morbid (severe) obesity due to excess calories; I10 Essential (primary) hypertension; T50.902A Poisoning by unspecified drugs, medicaments and biological substances, intentional self-harm, initial encounter; G62.9 Polyneuropathy, unspecified; N39.0 Urinary tract infection, site not specified; Z20.822 Contact with and (suspected) exposure to COVID-19; F10.239 Alcohol dependence with withdrawal, unspecified; F10.220 Alcohol dependence with intoxication, uncomplicated; Z68.35 Body mass index [BMI] 35.0-35.9, adult; Z91.040 Latex allergy status; Z91.09 Other allergy status, other than to drugs and biological substances; Z79.899 Other long term (current) drug therapy; Z79.84 Long term (current) use of oral hypoglycemic drugs; Y92.89 Other specified places as the place of occurrence of the external cause; Z87.442 Personal history of urinary calculi; Z91.048 Other nonmedicinal substance allergy status; Z98.891 History of uterine scar from previous surgery; Y90.8 Blood alcohol level of 240 mg/100 ml or more
CPT/HCPCS: 36415; 74018; 80053; 80061; 80305; 80320; 80329; 81001; 81025; 82948; 83036; 83735; 85025; 86592; 86703; 86803; 87077; 87081; 87088; 87186; 87491; 87522; 87811; 93005; 99285; A4615; A6250; J7030

== ENCOUNTER 2024-08-21 00:33 | Emergency (ER) | payer MEDICAID ==
[~2024-08-21] VITALS: Ht 162.6 cm; Wt 100.2 kg
[~2024-08-21 00:33] MED LIST changes: +ANBESOL MM; +ARIP5TAB53 PO; +ASPI-1071 PO; +BUSP10TA11 PO; +BUSP5TAB26 PO; +CETI10TA14 PO; +CLON0.1T2 PO; +DIVA125T2 PO; +DOCU100C40 PO; +FOLI1TAB27 PO; -IBUP-1985 PO; +LACT1CAP26 PO; +LEVO-65 PO; +LISI2.5T14 PO; -LISI5TAB22 PO; +METF-1203 PO; +MIRT-87 PO; +NICO-687 TD; +NICO-907 BC; -NORE0.3520 PO; +ONDA-243 PO; -ONDA-245 PO; -OXYC-145 PO; +SEMA1PEN3 SUBCUT; +TRAZ-251 PO; -[UNRECOGNIZED DRUG - CODE] PO; +thiamine tablet PO
[2024-08-21] MEDS ORDERED: iohexol 300mg/ml 100ml inj. ONE (01:01)
[2024-08-21 01:03] LABS: BASOPHILS # (AUTO) 0.1 X10'3 (0-0.2); BASOPHILS % (AUTO) 0.8 % (0-1); EOSINOPHILS # (AUTO) 0.2 X10'3 (0-0.9); EOSINOPHILS % (AUTO) 1.6 % (0-6); HEMATOCRIT 42.6 % (35.0-45.0); HEMOGLOBIN 14.8 g/dl (12.0-16.0); LYMPHOCYTES # (AUTO) 5.4 X10'3 (1.1-4.8); LYMPHOCYTES % (AUTO) 52.2 % (21-51); MEAN CORPUSCULAR HGB CONC 34.7 g/dL (33.0-36.5); MEAN CORPUSCULAR VOLUME 95.1 FL (78-98); MEAN PLATELET VOLUME 6.7 FL (7.4-10.4); MONOCYTES # (AUTO) 0.7 X10'3 (0-0.9); MONOCYTES % (AUTO) 6.6 % (2-12); NEUTROPHILS # (AUTO) 4.1 X10'3 (1.8-7.7); NEUTROPHILS % (AUTO) 38.8 % (42-75); PLATELET COUNT 293 X10'3 (140-440); RED BLOOD COUNT 4.48 X10'6 (4.20-5.60); RED CELL DISTRIBUTION WIDTH 14.8 % (11.5-14.5); WHITE BLOOD COUNT 10.4 X10'3 (4.5-11.0)
[2024-08-21 01:03] LABS: URINE HCG NEGATIVE (NEG)
[2024-08-21] MEDS: ketorolac trometh 30MG/ML vial 30 MG/ML VIAL IV ONE (01:06)
[2024-08-21 01:07] LABS: BILIRUBIN,URINE NEGATIVE (Neg); CLARITY,URINE CLEAR (Clear); COLOR,URINE YELLOW (Yellow); GLUCOSE, URINE NEGATIVE (Neg); KETONES,URINE NEGATIVE (Neg); LEUKOCYTE ESTERASE ,URINE NEGATIVE (Neg); NITRITES, URINE NEGATIVE (Neg); OCCULT BLOOD,URINE NEGATIVE (Neg); PH,URINE 6.5 (4.8-8.0); PROTEIN,URINE NEGATIVE (Neg); UROBILINOGEN,URINE 0.2 E.U/dL (0.2-1.0)
[2024-08-21 01:12] LABS: UA COLLECTION TYPE CLN CATCH MIDSTREAM
[2024-08-21 01:16] LABS: ALANINE AMINOTRANSFERASE 22 U/L (12-78); ALBUMIN 3.5 G/DL (3.4-5.0); ALBUMIN/GLOBULIN RATIO 0.8 (1.1-1.5); ALKALINE PHOSPHATASE 95 IU/L (46-116); ANION GAP 6 (8-16); ASPARTATE AMINO TRANSFERASE 20 U/L (10-37); BILIRUBIN,TOTAL 0.3 MG/DL (0.1-1.0); BLOOD UREA NITROGEN 9 MG/DL (7-18); BUN/CREATININE RATIO 11.4 (10.0-20.0); CALCIUM 8.3 MG/DL (8.5-10.1); CHLORIDE 104 MMOL/L (99-107); CREATININE 0.79 MG/DL (0.40-0.90); GLUCOSE 94 MG/DL (70-104); MAGNESIUM 2.3 MG/DL (1.5-2.4); POTASSIUM 4.3 MMOL/L (3.5-5.1); SODIUM 141 MMOL/L (135-145); TOTAL CARBON DIOXIDE 31.4 MMOL/L (24-32); TOTAL PROTEIN 7.7 G/DL (6.4-8.2); eCRCL 79 ML/MIN; eGFR 79 ML/MIN
[2024-08-21 01:19] LABS: HCG SERUM QL NEGATIVE
[2024-08-21 01:25] LABS: TOTAL CELLS COUNTED 100
[2024-08-21 02:16] VITALS: BP 132/68; PULSE 82; RESP 16; TEMP 98.3; O2SAT 98
[2024-08-21] MEDS ORDERED: CYCL-1 PO (21:47)
[2024-08-21] MEDS ORDERED: TRAM50TA2 PO (21:47)
== END 2024-08-21 02:20 | disposition home or self-care (01) ==
LOC: ER 00:33
DX: R10.84 Generalized abdominal pain (principal); N28.89 Other specified disorders of kidney and ureter; I10 Essential (primary) hypertension; F12.90 Cannabis use, unspecified, uncomplicated; F10.90 Alcohol use, unspecified, uncomplicated; Z87.442 Personal history of urinary calculi; Z91.040 Latex allergy status; Z79.84 Long term (current) use of oral hypoglycemic drugs; Z79.899 Other long term (current) drug therapy; Y90.9 Presence of alcohol in blood, level not specified
CPT/HCPCS: 36415; 74177; 80053; 81003; 81025; 83735; 84703; 85007; 85025; 96374; 99285; J1885; Q9967

== ENCOUNTER 2024-08-21 20:44 | Emergency (ER) | payer MEDICAID ==
[~2024-08-21] VITALS: Ht 162.6 cm; Wt 90.8 kg
[2024-08-21 21:28] VITALS: BP 123/103; PULSE 89; O2SAT 96
[2024-08-21] MEDS ORDERED: TRAM50TA2 PO (21:47)
[2024-08-21] MEDS ORDERED: CYCL-1 PO (21:47)
[2024-08-21 21:53] VITALS: RESP 16
[2024-08-21] MEDS: ketorolac trometh 15mg/ml vial 15 MG/ML ML IM ONE (21:53)
[2024-08-21] MEDS: orphenadrine citrate 60mg/2ml inj. IM ONE (21:53)
[2024-08-21] MEDS: oxyCODONE/APAP 5-325mg tablet PO ONE (21:53)
[2024-08-21 22:02] VITALS: TEMP 96.8
== END 2024-08-21 22:03 | disposition home or self-care (01) ==
LOC: ER 20:45
DX: M54.59 Other low back pain (principal); I10 Essential (primary) hypertension; F12.90 Cannabis use, unspecified, uncomplicated; F10.90 Alcohol use, unspecified, uncomplicated; Z91.040 Latex allergy status; Z79.84 Long term (current) use of oral hypoglycemic drugs; Z79.899 Other long term (current) drug therapy; Y90.9 Presence of alcohol in blood, level not specified
CPT/HCPCS: 96372; 99284; J1885; J2360

== ENCOUNTER 2024-09-27 01:16 | Emergency (ER) | payer MEDICAID ==
[~2024-09-27] VITALS: Ht 162.6 cm; Wt 100.1 kg
[~2024-09-27 01:16] MED LIST changes: -ANBESOL MM; -ARIP5TAB53 PO; -ASPI-1071 PO; -BUSP5TAB26 PO; -CLON0.1T2 PO; +CYCL-1 PO; -DIVA125T2 PO; -DOCU100C40 PO; -FOLI1TAB27 PO; -LACT1CAP26 PO; -LEVO-65 PO; -NICO-687 TD; -NICO-907 BC; -ONDA-243 PO; -RISP-31 PO
[2024-09-27 02:42] LABS: BILIRUBIN,URINE NEGATIVE (Neg); CLARITY,URINE SLIGHTLY CLOUDY (Clear); COLOR,URINE YELLOW (Yellow); GLUCOSE, URINE NEGATIVE (Neg); KETONES,URINE NEGATIVE (Neg); LEUKOCYTE ESTERASE ,URINE SMALL (Neg); OCCULT BLOOD,URINE TRACE-INTACT (Neg); PROTEIN,URINE NEGATIVE (Neg); UROBILINOGEN,URINE 0.2 E.U/dL (0.2-1.0)
[2024-09-27 02:50] LABS: UA COLLECTION TYPE CLN CATCH MIDSTREAM
[2024-09-27 02:52] LABS: NITRITES, URINE NEGATIVE (Neg)
[2024-09-27 02:55] LABS: AMORPHOUS URATES 1+; BACTERIA,URINE 1+ /HPF (Neg); RBC,URINE 0-2 /HPF (0-2); SQUAMOUS EPITHELIAL CELL,UR MODERATE /LPF (FEW); WBC,URINE 0-4 /HPF (0-4)
--- NOTE | 2024-09-27 03:09 | Physician Documentation ---
History of Present Illness ~ Chief Complaint: Urinary Symptoms Stated Complaint: VAGINAL DISCOMFORT Time Seen by MD: 02:21 OK to notify your PCP?: Yes Primary Medical Doctor: SHAILESH GONZALEZ Source: patient, family, RN/, RN notes reviewed, old records Mode of Arrival: POV Exam Limitations: no limitations HPI 43 year old female, with a history of kidney stones, presents complaining of vaginal burning and swelling for the last two days. Pain is rated 8/10 at this time. She also reports some mild numbness of her vaginal area, which she relates to swelling. She also is currently unable to urinate, despite trying. Her significant other notes that they have been having sexual intercourse for "five days straight." She denies any vaginal discharge or odor. She has not been on antibiotics recently. She denies concern for STD. Patient has a history of alcoholism, and drinks vodka nightly. Medication Reconciliation Allergies: Coded Allergies: latex (Unverified Allergy, Unknown, 09/27/24) Uncoded Allergies: tape (Allergy, Mild, H[place], 01/18/24) Scheduled Buspirone Hcl* (Buspar*), 1 TAB PO DAILY Cetirizine HCl (Cetirizine HCl), 1 TAB PO HS Lisinopril (Lisinopril), 2.5 MG PO DAILY Metformin HCl (Metformin HCl), 500 MG PO HS Metronidazole (Metronidazole), 1 APPLICATOR VG HS Mirtazapine (Mirtazapine), 7.5 MG PO HS Semaglutide (Ozempic), 1 MG SUBCUT Q7D Trazodone HCl (Trazodone HCl), 1 TAB PO HS [thiamine tablet], 100 MG PO TID Scheduled PRN Cyclobenzaprine* (Cyclobenzaprine*), 1 TAB PO Q8H PRN for pain Discontinued Medications Tramadol HCl (Tramadol HCl), 1 TAB PO Q6H PRN PRN for pain Discontinued Reason: Auto Discontinued Past Medical History Past Medical History: Hypertension, Kidney Stones Past Surgical History: no surgical history Patient History: FHx: alcoholism Alcohol Use: Heavy Drug Use: marijuana Lives In: Home Review of Systems All Other Systems at this time: Reviewed and Negative ROS As stated above in the HPI, otherwise all systems are reviewed and negative. Physical Exam Vital Signs: RN Vital Signs have been reviewed: Yes, Temperature: 97.0, Heart Rate: 103, Respiratory Rate: 16, BP: 138/103, Pulse Oximetry: 95, Weight: 100.100 Pulse Oximetry Reflects: adequate oxygenation Physical Exam General: The patient is well developed, well nourished, nontoxic appearing and is in no acute distress. Skin: See . [place], warm and dry with no rashes. HEENT: Head was normocephalic and atraumatic. Chest: Clear to auscultation bilaterally without wheezes, rales or rhonchi. No accessory muscle use. No dullness to percussion. Heart: Rate regular and rhythmic. S1, S2. No murmurs. Palpation of the chest wall was normal. No rubs or thrills. Abdomen: Soft, nontender and nondistended. Positive bowel sounds. No guarding or rebound. : (Female restorative rehab aide present - RN, Monae) external labia with mild swelling and edema. internal labia appears slightly erythematous with edema. Vaginal vault with white cheesy discharge. No adnexal tenderness, no CMT. Extremities: No cyanosis, clubbing or edema. The patient moves all extremities. Pulses were equal and symmetric. Neurologic: Motor and sensation grossly intact. Cranial nerves II-XII grossly intact. A & O x4. Psychologic: Normal mood and affect. No agitation. Progress Results/Orders Reviewed/noted all lab results: Yes Results/Orders Orders - FREDERIC CEDENO MD Cult Urine + [address] (09/27/24 02:55) Completed Orders - FREDERIC CEDENO MD Ua W/Microscopic, Cult If Ind (09/27/24 01:51) Wet Prep (09/27/24 03:25) Rao Prep (Fungal Smear) (09/27/24 03:25) Metronidazole Tablet (Flagyl Tablet) (09/27/24 04:15) Ondansetron Disint. Tablet (Zofran Odt T (09/27/24 04:15) Medications Received in ER Medications (Trade) Dose Ordered Sig/Norberto Route PRN Reason Start Time Stop Time Status Last Admin Dose Admin (Flagyl tablet) 1,000 mg ONCE ONCE PO 09/27/24 04:15 09/27/24 04:16 DC 09/27/24 04:20 1,000 MG (Zofran ODT tablet) 4 mg ONCE ONCE PO 09/27/24 04:15 09/27/24 04:16 DC 09/27/24 04:20 4 MG Vital Signs 09/27/24 09/27/24 09/27/24 01:19 01:32 04:22 Temp 97.0 97.4 Pulse 103 96 Resp 12 16 16 B/P (MAP) 138/103 132/98 Pulse Ox 95 98 Laboratory Tests Test 09/27/24 01:51 Urine Specimen Description Cln catch midstream Urine Color Yellow Urine Clarity Slightly cloudy Urine pH 6.0 Urine Specific [place] 1.010 Urine Protein Negative Urine Glucose (UA) Negative Urine Ketones Negative Urine Occult Blood Trace-intact Urine Nitrite Negative Urine Bilirubin Negative Urine Urobilinogen 0.2 Urine Leukocyte Esterase Small H Urine RBC 0-2 Urine WBC 0-4 Urine Squamous Epithelial Cells Moderate Urine Amorphous Urates 1+ Urine Bacteria 1+ Urine Culture Indicated Indicated Volume Urine Centrifuged 10 ml Urine Comment Microbiology Date/Time Source Procedure Growth Status 09/27/24 03:55 Cervix RAO Preparation - Final Complete 09/27/24 02:55 Urine Clean Catch Midstream Urine Culture - Preliminary Culture received. Resulted Re-Evaluation Re-Evaluation : Re-Evaluation: Improved Progress Patient was seen and examined. Patient was given reassurance. The patient was having some vaginal pain and discharge she denies any UTI symptoms except fullness and burning when she pees. She has had a lot of trauma to the area i.e. lots of intercourse but otherwise she is doing well. Her partner is at the bedside has no symptoms they are not worried about STDs. Patient's exam showed lots of discharge and bacteria was treated for bacterial vaginosis including metronidazole Zofran other ancillary treatments was discussed such as apple cider vinegar avoiding sugar, garlic and unfortunately avoiding alcohol which will not happened since the patient is drinking a half a gal a day. We also discussed if it is recurrent problem sometimes treated in the partner as well as a solution. Patient was then given reassurance and discharged home. Medical Decision Making Genital Diff Dx:Considerations: Include: Bartholin abscess, Bartholin cyst, Cervicitis, Foreign body, Physiologic discharge, UTI, Vaginitis(osis)-Atrophic, Vaginitis, Vaginitis(osis)-Bacterial, Vaginitis(osis)-Candidal, Vaginitis(osis)- Contact, Vaginitis(osis)-Herpes, Vaginitis(osis)-Trich., Other Departure Time of Disposition: 04:14 Disposition: 01 HOME / SELF CARE / HOMELESS Impression: Primary Impression: Bacterial vaginosis Condition: Stable Discharge Instructions: Bacterial Vaginosis, [id number] Additional Instructions: Take full course of antibiotics as prescribed. Do not drink alcohol tonight. You may feel dizzy from medications in the ER. Lie down and drink nonalcoholic fluids. Consider drinking apple cider vinegar. Return to the ER for any other concerns. Prescriptions Metronidazole (Metronidazole) 0.75 % Gel.w.appl 1 APPLICATOR VG HS for 5 Days, #70 GM 2 Refills Prov: FREDERIC CEDENO MD 09/27/24 Education Educated: Patient Educated regarding: diagnosis, treatment, need for follow up Signature Scribe Signature: Scribed for Frederic Cedeno MD by Josh Hicks . 09/27/24 03:34 Attestation: The note accurately reflects work and decisions made by me.Frederic Cedeno MD 09/27/24 03:09 FREDERIC CEDENO MD September 27, 2024 03:09 JOSH PLUMMER September 27, 2024 03:34
[2024-09-27] MEDS ORDERED: METR70GE27 VG (04:11)
[2024-09-27] MEDS: metroNIDAZOLE 500mg tablet PO ONE (04:20)
[2024-09-27] MEDS: ondansetron 4mg rapidly disintigrating tab PO ONE (04:20)
[2024-09-27 04:22] VITALS: BP 132/98; PULSE 96; RESP 16; TEMP 97.4; O2SAT 98
== END 2024-09-27 04:26 | disposition home or self-care (01) ==
LOC: ER 01:17
DX: N76.0 Acute vaginitis (principal); B96.89 Other specified bacterial agents as the cause of diseases classified elsewhere; I10 Essential (primary) hypertension; F12.90 Cannabis use, unspecified, uncomplicated; Z87.442 Personal history of urinary calculi; Z91.040 Latex allergy status; Z79.899 Other long term (current) drug therapy; Z79.84 Long term (current) use of oral hypoglycemic drugs
CPT/HCPCS: 81001; 87088; 87210; 99284; Q0112

== ENCOUNTER 2025-02-06 01:30 | Emergency (ER) | payer BC, MEDICAID ==
[~2025-02-06] VITALS: Ht 162.6 cm; Wt 104.5 kg
[~2025-02-06 01:30] MED LIST changes: +METR70GE27 VG
[2025-02-06 01:36] VITALS: BP 144/93; PULSE 105; TEMP 98.2; O2SAT 96
--- NOTE | 2025-02-06 01:58 | Physician Documentation ---
History of Present Illness ~ Chief Complaint: 5149 Stated Complaint: MENTAL HEALTH EVAL Time Seen by MD: 01:53 Primary Medical Doctor: SHAILESH GONZALEZ [facility] This is a 44-year-old female with frequent visits to our emergency department presents on 515 legal hold. Evidently she made some suicidal statements. She tells me that she is not suicidal. She tells me she is here because my family is crazy. She denies any somatic complaints. She drinks everyday, she drank today, she is intoxicated. Medication Reconciliation Allergies: Coded Allergies: latex (Unverified Allergy, Unknown, 02/06/25) Uncoded Allergies: tape (Allergy, Mild, Hive, 01/18/24) Scheduled Buspirone Hcl* (Buspar*), 1 TAB PO DAILY Cetirizine HCl (Cetirizine HCl), 1 TAB PO HS Lisinopril (Lisinopril), 2.5 MG PO DAILY Metformin HCl (Metformin HCl), 500 MG PO HS Metronidazole (Metronidazole), 1 APPLICATOR VG HS Mirtazapine (Mirtazapine), 7.5 MG PO HS Semaglutide (Ozempic), 1 MG SUBCUT Q7D Trazodone HCl (Trazodone HCl), 1 TAB PO HS [thiamine tablet], 100 MG PO TID Scheduled PRN Cyclobenzaprine* (Cyclobenzaprine*), 1 TAB PO Q8H PRN for pain Past Medical History Past Medical History: Hypertension, Kidney Stones Past Surgical History: no surgical history Patient History: FHx: alcoholism Alcohol Use: Heavy Drug Use: marijuana Lives In: Home Review of Systems ROS 10 point review of systems was performed and unless noted above in HPI is negative for acute process/complaint. Physical Exam Vital Signs: Temperature: 98.2, Source: Oral, Heart Rate: 105, Respiratory Rate: 18, BP: 144/93, Pulse Oximetry: 96, Weight: 104.550 Oxygen Flow Rate: 0 Physical Exam GENERAL: Awake, alert, oriented, GCS 15, no apparent distress, non-toxic appearing, answers questions, follows commands appropriately. Examined immediately upon arrival in bed 16. HEENT: Atraumatic, normocephalic, pupils equal, extraocular muscles intact, sclerae anicteric, mucus membranes moist, oropharynx is clear, no stridor. NECK: supple, full active range of motion, trachea midline, no thyromegaly, no lymphadenopathy, no JVD. CARDIOVASCULAR: regular rate/rhythm, no murmurs/gallops/rubs, Pulses are 2+ in all extremities and symmetric. Capillary refill less than 2 seconds. PULMONARY: Nonlabored, good air movement ,no respiratory distress, speaking in full sentences, clear to auscultation bilaterally, no wheezing, no ronchi, no rales, no accessory muscle use. GASTROINTESTINAL: Soft, non-tender, non-distended, normal active bowel sounds, no organomegaly, no pulsatile masses, no CVA tenderness. NEUROLOGIC: Lucid with normal mental status. Normal facial symmetry. Moves all extremities symmetrically and with purpose. No truncal ataxia. Speech is fluid without evidence of dysarthria or aphasia, no focal deficits appreciated. MUSCULOSKELETAL: There is full range of motion of all extremities. There is no joint pain or joint swelling or joint erythema. There is no muscle pain or tenderness or swelling. EXTREMITIES: warm, well-perfused, no cyanosis, no clubbing, no edema, no acute deformities. Skin: warm, dry, no rashes or lesions, no jaundice, no petechiae orpurpura. No ecchymosis. PSYCHIATRIC: Normal affect, normal insight, normal concentration. Focused exam: [Does not respond to internal stimuli] Progress Results/Orders Results/Orders Orders - MITALI BERG DO Cbc/Diff (02/06/25 04:09) Hcg, Ur Ql (02/06/25 04:09) Drug Screen, Urine (02/06/25 04:09) Close Observation Level (02/06/25 04:09) Covid19 Binax Poc Result Entry (02/06/25 04:09) Substance Use Navigator (02/06/25 04:09) Regular Diet (02/06/25 Breakfast) Saline Lock (02/06/25 04:33) Lorazepam Inj (Ativan Inj) (02/06/25 04:35) Lorazepam Inj (Ativan Inj) (02/06/25 04:35) Lorazepam Tablet (Ativan Tablet) (02/06/25 04:35) Lorazepam Inj (Ativan Inj) (02/06/25 04:35) * Verify Ciwa Scoring* (02/06/25 04:33) Phenobarbital Inj (Phenobarbital Inj.) (02/06/25 04:35) Ondansetron Inj. (Zofran 4mg/2ml Vial) (02/06/25 04:35) Ondansetron Disint. Tablet (Zofran Odt T (02/06/25 04:35) Thiamine Tablet (Thiamine Tablet) (02/09/25 08:00) Folic Acid Tablet (Folic Acid Tablet) (02/09/25 08:00) Multivitamins, Therapeutic Tab (Theragra (02/06/25 08:00) Man Diff (02/06/25 04:36) Completed Orders - MITALI BERG DO Salicylate (02/06/25 01:47) Ethanol (02/06/25 01:47) TSH (02/06/25 04:09) BMP (02/06/25 04:09) CMP (02/06/25 04:09) Ua With Microscopic (02/06/25 01:46) Vital Signs 02/06/25 02/06/25 01:36 04:04 Temp 98.2 Pulse 105 Resp 18 16 B/P (MAP) 144/93 Pulse Ox 96 O2 Flow Rate 0 Laboratory Tests Test 02/06/25 01:44 02/06/25 01:46 02/06/25 02:18 02/06/25 04:36 SARS-CoV-2 Antigen (Rapid) Negative Urine Specimen Description Non-specified Urine Color Yellow Urine Clarity Clear Urine pH 5.5 Urine Specific [place] 1.010 Urine Protein Negative Urine Glucose (UA) Negative Urine Ketones Negative Urine Occult Blood Trace-intact Urine Nitrite Negative Urine Bilirubin Negative Urine Urobilinogen 0.2 Urine Leukocyte Esterase Negative Urine RBC 0-2 Urine WBC 0-4 Urine Squamous Epithelial Cells Many Urine Bacteria 2+ Volume Urine Centrifuged 10 ml Urine HCG, Qualitative Negative Urine Comment Drug Screen Comment Sodium Level 144 Potassium Level 3.6 Chloride Level 109 H Carbon Dioxide Level 22.5 L Anion Gap 13 Blood Urea Nitrogen 13 Creatinine 0.73 Estimated GFR/1.73 m2 87 BUN/Creatinine Ratio 17.8 Glucose Level 116 H Calcium Level 8.2 L Total Bilirubin 0.2 Aspartate Amino Transf (AST/SGOT) 15 Alanine Aminotransferase (ALT/SGPT) 14 Alkaline Phosphatase 98 Total Protein 6.6 Albumin 3.2 L Globulin 3.4 Albumin/Globulin Ratio 0.9 L Thyroid Stimulating Hormone (TSH) 0.45 Chemistry Comments Salicylates Level 4.2 Ethyl Alcohol Level 215 H White Blood Count 8.9 Red Blood Count 4.02 L Hemoglobin 12.7 Hematocrit 37.8 Mean Corpuscular Volume 93.9 Mean Corpuscular Hemoglobin 31.5 H Mean Corpuscular Hemoglobin Concent 33.6 Red Cell Distribution Width 13.0 Platelet Count 278 Mean Platelet Volume 7.2 L Neutrophils (%) (Auto) 34.9 L Lymphocytes (%) (Auto) 55.8 H Monocytes (%) (Auto) 7.0 Eosinophils (%) (Auto) 1.7 Basophils (%) (Auto) 0.6 Neutrophils # (Auto) 3.1 Lymphocytes # (Auto) 4.9 H Monocytes # (Auto) 0.6 Eosinophils # (Auto) 0.2 Basophils # (Auto) 0.1 CBC Comment Basophilic Stippling Medical Decision Making Findings Facility Status: ED Holds, [facility] process The plan was discussed with the patient, who demonstrates clear understanding of the plan and is in agreement with the plan unless otherwise noted in the chart. All questions have been answered, all concerns were addressed unless otherwise documented. I was available throughout their ED stay for frequent reassessment and questions. Differential Diagnoses (considered and possible or likely): [Alcohol intoxication, stress reaction, less likely true suicidality, less likely self- harm as she denies any self-harm currently, alcoholism] ??Differential Diagnoses (considered and unlikely, not requiring evaluation currently): [Denies any somatic complaints] MDM Data Please see HPI for the following: Independent Historians and external Records Review. Historian: [Patient] Independent Historians: ?[Police, record review] Medication Management: [Reviewed medication list] Social History and determinants: [Reviewed] Please see the body of the note for the following: Any independent interpretations of ECG, imaging studies. All vitals signs/haemodynamics, ordered tests were independently reviewed and interpreted by myself. Nursing triage complaint and vitals reviewed, additional nursing notes were reviewed as available and I agree unless otherwise noted or documented in contradiction in the chart Vital Signs: Independently reviewed Labs: Independently interpreted Imaging: Independently interpreted Old Medical Records: Independently reviewed, see HPI for relevant summary and information Pulse Oximetry: [99%] interpreted as [normal on room air] by me [Accounting Lecturer: [Regular Rate, Regular rhythm, no ectopy, NSR] reviewed and interpreted by me] Additionally notably showing: [Hemodynamics reviewed. She is initially tachycardic, improved with rest. No evidence of hypotension. No evidence of respiratory distress. Laboratory studies reviewed. CBC is normal. Lymphocytic predominance noted, unknown significance. Platelets are normal. No anemia. Chemistry is unremarkable. Normal electrolytes and normal renal function. No transaminitis. Thyroid studies are normal. Toxicology notable for elevated alcohol of 215, this lady clearly drinks more than a six pack a day. UA is nondiagnostic for UTI. COVID is negative.] Tests considered but not ordered include: [Imaging does not appear to be necessary] Social Determinants of Health Impact: Patient was evaluated in [facility], or [facility] [place] healthcare due to below par ratio of patient to medical providers. [] Comorbid Conditions Impacting Present Evaluation and Care/Treatment: [Psychiatric disease, alcoholism] Management Discussions with other Healthcare Providers: [Transfer orders for [facility]: At this time there is no evidence of an emergent medical condition that would preclude (admission/transfer) to a psychiatric unit via [facility] protocol for further psychiatric, as well as medical evaluation and treatment. At this time I have no reason to believe that transfer via [facility] protocol would have serious medical compromise in the patient's health.] Treatment and Disposition Medication Management (Given or considered): [Benzodiazepines for preemptive treat in the potential alcohol withdrawal]. See EMR for details Consideration for Hospitalization/Escalation/Deescalation of Care: Admission for observation has been considered, [however the patient is able to tolerate p.o., their symptoms are controlled, they are able to rely on oral medications, and their chief complaint/diagnosis can be managed on outpatient basis.] ?ED Course:?[Date: Feb 06, 2025 Time: 04:54 Patient does not meet criteria for admission for alcohol withdrawal at this time. She is medically cleared for psychiatric evaluation. There is in fact that chance that she might decompensate, developed significant alcohol withdrawal and may potential require admission in the future.] ?Shared decision making:?[] Code status:?FULL Please see the full Electronic Medical Record for full details of nursing documentation, medications list, other records of complete past medical history and conditions, vital signs, laboratory studies, and any radiologic study interpretations by radiologists. Portions of this note were completed using dr escalante dictation software and as a result there may exist minor errors in spelling. I have reviewed elements of past family and social history and agree as included in note. Departure Disposition: 30 STILL A PATIENT Impression: Primary Impression: Suicidal ideation Additional Impression: Alcohol intoxication Condition: Stable Referrals: NO PRIMARY CARE PROVIDER (PCP) Signature Scribe Signature: No scribe Attestation: Date: Feb 06, 2025 Time: 01:58 This note accurately reflects clinical decisions, work performed by myself, DO OTIS Carias NICHOLAS M DO Feb 06, 2025 01:58
[2025-02-06 03:02] LABS: ETHANOL 215.0 MG/DL (<10)
[2025-02-06 04:32] LABS: CREATININE 0.73 MG/DL (0.40-0.90); TOTAL CARBON DIOXIDE 22.5 MMOL/L (24-32); eCRCL 85 ML/MIN; eGFR 87 ML/MIN
[2025-02-06] MEDS ORDERED: ondansetron/PF 4mg/2ml inj IV PRN (04:35)
[2025-02-06] MEDS ORDERED: ondansetron 4mg rapidly disintigrating tab PO PRN (04:35)
[2025-02-06 04:39] LABS: LEUKOCYTE ESTERASE ,URINE NEGATIVE (Neg); NITRITES, URINE NEGATIVE (Neg); OCCULT BLOOD,URINE TRACE-INTACT (Neg)
[2025-02-06 04:40] LABS: URINE HCG NEGATIVE (NEG)
[2025-02-06 04:41] LABS: UA COLLECTION TYPE NON-SPECIFIED
[2025-02-06 04:45] LABS: MEAN PLATELET VOLUME 7.2 FL (7.4-10.4); RED CELL DISTRIBUTION WIDTH 13.0 % (11.5-14.5)
[2025-02-06 04:45] LABS: SQUAMOUS EPITHELIAL CELL,UR MANY /LPF (FEW)
[2025-02-06 05:06] LABS: URINE AMPHETAMINE SCREEN NEGATIVE (Neg); URINE BARBITUATE SCREEN NEGATIVE (Neg); URINE BENZODIAZEPINES SCREEN NEGATIVE (Neg); URINE CANNABINOID SCREEN NEGATIVE (Neg); URINE COCAINE SCREEN NEGATIVE (Neg); URINE METHADONE SCREEN NEGATIVE (Neg); URINE OPIATE SCREEN NEGATIVE (Neg); URINE PHENCYCLIDINE SCREEN NEGATIVE (Neg)
[2025-02-06 05:07] LABS: EOSINOPHILS % (MANUAL) 2.0 % (0-6); LYMPHOCYTES % (MANUAL) 59.0 % (21-51); MONOCYTES % (MANUAL) 6.0 % (2-12); NEUTROPHILS % (MANUAL) 33.0 % (42-75); PLATELET ESTIMATE NORMAL
[2025-02-06] MEDS ORDERED: MIRT7.5T11 PO (06:46)
[2025-02-06] MEDS ORDERED: LURA20TA2 PO (06:46)
[2025-02-06] MEDS ORDERED: ESCI20TA39 PO (06:46)
[2025-02-06] MEDS ORDERED: BUSP10TA11 PO (06:46)
[2025-02-06] MEDS ORDERED: CETI10TA14 PO (06:46)
[2025-02-06] MEDS: multivitamins, therapeutics tablet PO SCH (08:57)
[2025-02-06] MEDS: ESCITALOPRAM 10 mg tablet 10 MG TABLET PO SCH (08:58)
[2025-02-06 09:42] VITALS: RESP 16
== END 2025-02-06 10:33 | disposition home or self-care (01) ==
LOC: ER 01:31
DX: R45.851 Suicidal ideations (principal); F10.129 Alcohol abuse with intoxication, unspecified; I10 Essential (primary) hypertension; F12.90 Cannabis use, unspecified, uncomplicated; Z91.040 Latex allergy status; Z87.442 Personal history of urinary calculi; Z79.899 Other long term (current) drug therapy; Z79.84 Long term (current) use of oral hypoglycemic drugs; Z20.822 Contact with and (suspected) exposure to COVID-19; Y90.7 Blood alcohol level of 200-239 mg/100 ml
CPT/HCPCS: 36415; 80053; 80305; 80320; 80329; 81001; 81025; 84443; 85007; 85025; 87811; 99285

== ENCOUNTER 2025-02-07 20:17 | Emergency (ER) | payer BC ==
[~2025-02-07] VITALS: Ht 162.6 cm; Wt 250.0 kg
[~2025-02-07 20:17] MED LIST changes: -CYCL-1 PO; +ESCI20TA39 PO; -LISI2.5T14 PO; +LURA20TA2 PO; -METF-1203 PO; -METR70GE27 VG; -MIRT-87 PO; +MIRT7.5T11 PO; -SEMA1PEN3 SUBCUT; -TRAZ-251 PO; -thiamine tablet PO
[2025-02-07 21:03] LABS: MEAN PLATELET VOLUME 7.4 FL (7.4-10.4); RED CELL DISTRIBUTION WIDTH 13.0 % (11.5-14.5)
[2025-02-07 21:25] LABS: CREATININE 0.84 MG/DL (0.40-0.90); ETHANOL 211 MG/DL (<10); TOTAL CARBON DIOXIDE 26.0 MMOL/L (24-32); eCRCL 74 ML/MIN; eGFR 74 ML/MIN
[2025-02-07 21:26] LABS: LEUKOCYTE ESTERASE ,URINE NEGATIVE (Neg); NITRITES, URINE NEGATIVE (Neg); OCCULT BLOOD,URINE TRACE-INTACT (Neg)
[2025-02-07 21:28] LABS: URINE HCG NEGATIVE (NEG)
[2025-02-07 21:29] LABS: UA COLLECTION TYPE CLN CATCH MIDSTREAM
[2025-02-07] MEDS: nicotine 14mg patch - 24hr TD ONE (21:32)
[2025-02-07 21:35] LABS: SQUAMOUS EPITHELIAL CELL,UR MODERATE /LPF (FEW)
[2025-02-07 21:48] LABS: URINE AMPHETAMINE SCREEN NEGATIVE (Neg); URINE BARBITUATE SCREEN NEGATIVE (Neg); URINE BENZODIAZEPINES SCREEN NEGATIVE (Neg); URINE CANNABINOID SCREEN NEGATIVE (Neg); URINE COCAINE SCREEN NEGATIVE (Neg); URINE METHADONE SCREEN NEGATIVE (Neg); URINE OPIATE SCREEN NEGATIVE (Neg); URINE PHENCYCLIDINE SCREEN NEGATIVE (Neg)
--- NOTE | 2025-02-07 21:54 | Physician Documentation ---
History of Present Illness ~ Chief Complaint: 5150 Stated Complaint: MH Time Seen by MD: 20:24 Primary Medical Doctor: SHAILESH GONZALEZ Mode of Arrival: Police HPI Ms. Daniels is a 44 y/o female who presents to the ED from home for SI. Per report, she attempted to cut her left wrist. She was seen and evaluated here in the ED two days ago for the same. I spoke with her and she states that she does not want to harm herself and states "That was not me." She denies bassett llucinations. Medication Reconciliation Allergies: Coded Allergies: latex (Unverified Allergy, Unknown, 02/07/25) Uncoded Allergies: tape (Allergy, Mild, Hive, 01/18/24) Scheduled Buspirone Hcl* (Buspar*), 1 TAB PO TID, (Reported) Cetirizine HCl (Cetirizine HCl), 1 TAB PO HS, (Reported) Escitalopram Oxalate (Escitalopram Oxalate), 1 TAB PO DAILY, (Reported) Lurasidone HCl (Lurasidone HCl), 1 TAB PO DAILY, (Reported) Mirtazapine (Mirtazapine), 1 TAB PO HS, (Reported) Discontinued Medications Buspirone Hcl* (Buspar*), 1 TAB PO DAILY Discontinued Reason: Other Cetirizine HCl (Cetirizine HCl), 1 TAB PO HS Discontinued Reason: Other Cyclobenzaprine* (Cyclobenzaprine*), 1 TAB PO Q8H PRN for pain Discontinued Reason: Other Lisinopril (Lisinopril), 2.5 MG PO DAILY Discontinued Reason: Other Metformin HCl (Metformin HCl), 500 MG PO HS Discontinued Reason: Other Metronidazole (Metronidazole), 1 APPLICATOR VG HS Discontinued Reason: Other Mirtazapine (Mirtazapine), 7.5 MG PO HS Discontinued Reason: Other Semaglutide (Ozempic), 1 MG SUBCUT Q7D Discontinued Reason: Other Trazodone HCl (Trazodone HCl), 1 TAB PO HS Discontinued Reason: Other [thiamine tablet], 100 MG PO TID Discontinued Reason: Other Past Medical History Past Medical History: Hypertension, Kidney Stones Past Surgical History: no surgical history Patient History: FHx: alcoholism Alcohol Use: Heavy Drug Use: marijuana Lives In: Home Review of Systems All Other Systems at this time: Reviewed and Negative Physical Exam Vital Signs: RN Vital Signs have been reviewed: Yes, Temperature: 97.0, Source: Temporal, Heart Rate: 98, Respiratory Rate: 18, BP: 108/65, Pulse Oximetry: 100, Weight: 250.000 General Appearance: alert, WD/WN, no apparent distress EENT: PERRL/EOMI, normal ENT inspection Head: normal inspection Neck: non-tender Respiratory: lungs clear Cardiovascular: normal peripheral pulses Gastrointestinal: normal palpation Extremities Small superficial laceration to the left wrist. No active bleeding noted. Back: normal inspection Neurologic: oriented x4 Motor / Sensory: no motor deficit Cerebellar function exam: normal Appearance/Memory/Insight: appropriate appearance Behavior/Eye contact/Speech: cooperative Thought/Hallucinations: normal thought pattern Affect: appropriate Skin: warm/dry Lymphatic: no adenopathy Progress Results/Orders Results/Orders Medications Received in ER Medications (Trade) Dose Ordered Sig/Norberto Route PRN Reason Start Time Stop Time Status Last Admin Dose Admin (Latuda tablet) 20 mg DAILY PO 02/08/25 08:00 02/08/25 08:10 20 MG (Buspar tablet) 10 mg TID PO 02/08/25 08:00 02/08/25 08:10 10 MG (Lexapro 10mg tablet) 20 mg DAILY PO 02/08/25 08:00 02/08/25 08:10 20 MG Vital Signs 02/07/25 02/07/25 02/08/25 02/08/25 20:17 20:53 00:58 05:35 Temp 97.0 97.1 Pulse 98 71 Resp 18 18 18 14 B/P (MAP) 108/65 174/121 (138) Pulse Ox 100 97 02/08/25 08:20 Resp 16 B/P (MAP) Laboratory Tests Test 02/07/25 20:25 02/07/25 20:37 02/07/25 21:15 SARS-CoV-2 Antigen (Rapid) Negative White Blood Count 11.9 H Red Blood Count 4.63 Hemoglobin 14.7 Hematocrit 43.2 Mean Corpuscular Volume 93.3 Mean Corpuscular Hemoglobin 31.7 H Mean Corpuscular Hemoglobin Concent 34.0 Red Cell Distribution Width 13.0 Platelet Count 343 Mean Platelet Volume 7.4 Neutrophils (%) (Auto) 54.1 Lymphocytes (%) (Auto) 37.9 Monocytes (%) (Auto) 5.3 Eosinophils (%) (Auto) 1.7 Basophils (%) (Auto) 1.0 Neutrophils # (Auto) 6.4 Lymphocytes # (Auto) 4.5 Monocytes # (Auto) 0.6 Eosinophils # (Auto) 0.2 Basophils # (Auto) 0.1 CBC Comment Sodium Level 142 Potassium Level 3.9 Chloride Level 105 Carbon Dioxide Level 26.0 Anion Gap 11 Blood Urea Nitrogen 8 Creatinine 0.84 Estimated GFR/1.73 m2 74 BUN/Creatinine Ratio 9.5 L Glucose Level 105 H Calcium Level 8.7 Albumin 3.5 Thyroid Stimulating Hormone (TSH) 0.97 Chemistry Comments Ethyl Alcohol Level 211 H Urine Specimen Description Cln catch midstream Urine Color Yellow Urine Clarity Clear Urine pH 6.0 Urine Specific [place] 1.015 Urine Protein Negative Urine Glucose (UA) Negative Urine Ketones Trace H Urine Occult Blood Trace-intact Urine Nitrite Negative Urine Bilirubin Negative Urine Urobilinogen 0.2 Urine Leukocyte Esterase Negative Urine RBC 0-2 Urine WBC None seen Urine Squamous Epithelial Cells Moderate Urine Bacteria 1+ Volume Urine Centrifuged 10 ml Urine HCG, Qualitative Negative Urine Comment Urine Opiates Screen Negative Urine Methadone Screen Negative Urine Fentanyl Screen Negative Urine Barbiturates Screen Negative Urine Phencyclidine Screen Negative Urine Amphetamines Screen Negative Urine Benzodiazepines Screen Negative Urine Cocaine Screen Negative Urine Cannabinoids Screen Negative Drug Screen Comment Medical Decision Making Findings While here in the ED, she remained hemodynamically normal with ABC's intact and in NAD. She is afebrile and nontoxic. At this time, there is no evidence of an acute emergent medical condition that would preclude admission/transfer to a psychiatric unit. She is medically cleared for psych evaluation. Differential Dx:Considerations: Include: Alcohol abuse, Anxiety, Bipolar disorder, Conversion disorder, Depression, Homicidal, Personality disorder, Schizophrenia, Substance abuse, Suicidal Addendum Addendum: I received sign-out on this patient at shift change, pending mental health evaluation. 12:00 p.m. noon: The patient is evaluated by the mental health team. She is no longer suicidal, is not a danger to herself or others. It is felt that many of her symptoms are related to alcohol use. Plan is for discharge with outpatient resources. Telly Longoria MD Departure Time of Disposition: 11:59 Disposition: 01 HOME / SELF CARE / HOMELESS Impression: Primary Impression: Suicidal ideation Additional Impressions: Anxiety disorder Alcohol abuse Condition: Stable Referrals: NO PRIMARY CARE PROVIDER (PCP) Education Educated: Patient Educated regarding: diagnosis Signature Scribe Signature: N/A Attestation: N/A WALLACE CRUZ MD Feb 07, 2025 21:54 TELLY LONGORIA MD Feb 08, 2025 11:58
[2025-02-08 05:35] VITALS: BP 174/121; PULSE 71; TEMP 97.1; O2SAT 97
[2025-02-08] MEDS: ESCITALOPRAM 10 mg tablet 10 MG TABLET PO SCH (08:10)
[2025-02-08 08:20] VITALS: RESP 16
== END 2025-02-08 12:35 | disposition home or self-care (01) ==
LOC: ER 20:17
DX: S61.512A Laceration without foreign body of left wrist, initial encounter (principal); R45.851 Suicidal ideations; F10.10 Alcohol abuse, uncomplicated; F41.9 Anxiety disorder, unspecified; I10 Essential (primary) hypertension; F12.90 Cannabis use, unspecified, uncomplicated; Z91.040 Latex allergy status; Z87.442 Personal history of urinary calculi; Z79.899 Other long term (current) drug therapy; Z20.822 Contact with and (suspected) exposure to COVID-19; Y90.7 Blood alcohol level of 200-239 mg/100 ml; X78.1XXA Intentional self-harm by knife, initial encounter; Y93.89 Activity, other specified; Y92.89 Other specified places as the place of occurrence of the external cause; Y99.8 Other external cause status
CPT/HCPCS: 36415; 80048; 80305; 80320; 81001; 81025; 84443; 85025; 87811; 99285

== ENCOUNTER 2025-05-24 23:40 | Emergency (ER) | payer MEDICAID ==
[~2025-05-24] VITALS: Ht 162.6 cm; Wt 104.5 kg
[~2025-05-24 23:40] MED LIST changes: +ATOR20TA66 PO; +BUSP5TAB26 PO; +CARI1.5C PO; +CLON0.1T2 PO; +HYDR-3686 PO; +LISI20TA28 PO; -LURA20TA2 PO; -MIRT7.5T11 PO; +QUET25TA PO; +QUET25TA36 PO; +TRAZ-251 PO
--- NOTE | 2025-05-25 00:06 | Physician Documentation ---
History of Present Illness ~ Chief Complaint: Mental Health Carla Stated Complaint: CARLA Gee BLS Time Seen by MD: 00:04 HPI 44-year-old female presenting with suicidal ideations. Patient states that she started having thoughts again today about slitting her wrist. She states that couple weeks ago she did slit her wrist and was admitted to the hospital and hospitalized. After she was released she relapsed back into alcohol use and has been drinking along with her and her father in law at the [facility] for the past couple of weeks every day. She reports that her last drink was about an hour ago. She endorses heavy drinking of liquor daily. She denies any drug use. She has had several suicide attempts in the past as well. Medication Reconciliation Allergies: Coded Allergies: latex (Unverified Allergy, Unknown, 05/25/25) Uncoded Allergies: tape (Allergy, Mild, Hive, 01/18/24) Scheduled Atorvastatin Calcium (Atorvastatin Calcium), 20 MG PO DAILY Buspirone Hcl* (Buspar*), 1 TAB PO TID, (Reported) Cariprazine Hydrochloride (Vraylar), 1 CAP PO DAILY, (Reported) Cetirizine HCl (Cetirizine HCl), 1 TAB PO HS Escitalopram Oxalate (Escitalopram Oxalate), 1 TAB PO DAILY Lisinopril (Lisinopril), 20 MG PO DAILY Quetiapine Fumarate (Seroquel), 1 TAB PO HS, (Reported) Scheduled PRN Clonidine HCl (Clonidine HCl), 0.1 MG PO Q4H PRN for for anxiety/agitation Discontinued Medications Buspirone Hcl (Buspirone Hcl), 10 MG PO TID Discontinued Reason: patient no longer taking Hydroxyzine Hcl* (Atarax*), 50 MG PO Q6H PRN for anxiety Discontinued Reason: patient no longer taking Quetiapine Fumarate (Quetiapine Fumarate), 25 MG PO HS Discontinued Reason: patient no longer taking Trazodone HCl (Trazodone HCl), 50 MG PO HS PRN for Insomnia Discontinued Reason: patient no longer taking Past Medical History Past Medical History: Hypertension, Kidney Stones Past Surgical History: no surgical history Patient History: FH: breast cancer in first degree relative MOTHER, Onset:60 years & older FH: hypertension (mother) FHx: alcoholism MOTHER, Onset:60 years & older FATHER Review of Systems All Other Systems at this time: Reviewed and Negative Physical Exam Vital Signs: Temperature: 98.9, Source: Oral, Heart Rate: 95, Respiratory Rate: 16, BP: 92/67, Pulse Oximetry: 99, Weight: 104.550 Physical Exam I have reviewed the triage vitals. CONST: Well developed and well nourished. In no acute distress HENT: Head Atraumatic EYES: Pupils are equal, round and reactive to light. Normal conjunctiva NECK: Normal range of motion. Supple. CARDIO: Normal rate and regular rhythm. No murmurs, rubs, or gallops. S1, S2. PULM/CHEST: No respiratory distress. Lungs clear to auscultation. No wheeze ABD: Soft and nontender. Nondistended. Bowel sounds normal. No guarding. : Exam deferred MSK: No edema. No deformity. NEURO: Alert and oriented to person, place and time. Moving all extremities SKIN: Warm and dry. PSYCH: Normal mood and affect. Good eye contact. Endorses suicidal ideations Progress Progress Note Patient is medically cleared for psychiatric evaluation. 11:15 a.m. Transfer orders for [facility]: At this time there is no evidence of an emergent medical condition that would preclude (admission/transfer) to a psychiatric unit via [facility] protocol for further psychiatric, as well as medical evaluation and treatment. At this time I have no reason to believe that transfer via [facility] protocol would have serious medical compromise in the patient's health. Patient's alcohol level at midnight was 255. Patient has a history of heavy drinking. 4:00 a.m. alcohol levels 155 8:00 a.m. alcohol level is 55 10:00 a.m. alcohol level is 0 Patient is showing no signs of withdrawal patient is medically cleared at 11:15 a.m. Results/Orders Reviewed/noted all lab results: Yes Results/Orders Orders - ALEJANDRO BASS MD Med Rec (05/24/25 23:48) Close Observation Level (05/24/25 23:48) Covid19 Binax Poc Result Entry (05/24/25 23:48) 1799.11 (05/25/25 ) Completed Orders - ALEJANDRO BASS MD Cbc/Diff (05/24/25 23:48) Urinalysis (05/24/25 23:48) Hcg, Ur Ql (05/24/25 23:48) Drug Screen, Urine (05/24/25 23:48) Ethanol (05/24/25 23:48) TSH (05/24/25 23:48) BMP (05/24/25 23:48) Regular Diet (05/25/25 Breakfast) Nicotine 14mg Patch-24hr (Habitrol Patch (05/25/25 00:25) Buspirone Tablet (Buspar Tablet) (05/25/25 08:00) Buspirone Tablet (Buspar Tablet) (05/25/25 00:35) Acetaminophen 325mg Tablet (Tylenol Tabl (05/25/25 05:25) Ondansetron Disint. Tablet (Zofran Odt T (05/25/25 05:25) Store Meds In Pharmacy (Store Meds In Ph (05/25/25 07:10) Vital Signs 05/24/25 05/25/25 05/25/25 05/25/25 23:51 00:16 01:48 05:22 Temp 98.9 98.6 Pulse 95 80 Resp 16 18 18 B/P (MAP) 92/67 74/47 (56) Pulse Ox 99 99 05/25/25 05/25/25 05/25/25 05/25/25 06:00 08:45 08:53 16:06 Temp 98.6 Pulse 80 Resp 16 18 B/P (MAP) 96/69 (78) 120/90 (100) 120/90 Pulse Ox 99 Laboratory Tests Test 05/25/25 00:14 05/25/25 00:57 05/25/25 01:13 White Blood Count 9.3 Red Blood Count 4.97 Hemoglobin 15.6 Hematocrit 45.9 H Mean Corpuscular Volume 92.4 Mean Corpuscular Hemoglobin 31.4 H Mean Corpuscular Hemoglobin Concent 34.0 Red Cell Distribution Width 12.8 Platelet Count 329 Mean Platelet Volume 6.9 L Neutrophils (%) (Auto) 44.9 Lymphocytes (%) (Auto) 46.2 Monocytes (%) (Auto) 6.5 Eosinophils (%) (Auto) 1.9 Basophils (%) (Auto) 0.5 Neutrophils # (Auto) 4.2 Lymphocytes # (Auto) 4.3 Monocytes # (Auto) 0.6 Eosinophils # (Auto) 0.2 Basophils # (Auto) 0.1 CBC Comment Sodium Level 142 Potassium Level 4.5 Chloride Level 107 Carbon Dioxide Level 27.7 Anion Gap 7 L Blood Urea Nitrogen 10 Creatinine 0.89 Estimated GFR/1.73 m2 69 BUN/Creatinine Ratio 11.2 Glucose Level 107 H Calcium Level 8.4 L Albumin 3.3 L Thyroid Stimulating Hormone (TSH) 1.29 Chemistry Comments Ethyl Alcohol Level 255 H Urine Specimen Description Cln catch midstream Urine Color Yellow Urine Clarity Clear Urine pH 5.5 Urine Specific [place] <=1.005 Urine Protein Negative Urine Glucose (UA) Negative Urine Ketones Negative Urine Occult Blood Negative Urine Nitrite Negative Urine Bilirubin Negative Urine Urobilinogen 0.2 Urine Leukocyte Esterase Negative Volume Urine Centrifuged 10 ml Urine HCG, Qualitative Negative Urine Comment Urine Opiates Screen Negative Urine Methadone Screen Negative Urine Fentanyl Screen Negative Urine Barbiturates Screen Negative Urine Phencyclidine Screen Negative Urine Amphetamines Screen Negative Urine Benzodiazepines Screen Negative Urine Cocaine Screen Negative Urine Cannabinoids Screen Negative Drug Screen Comment SARS-CoV-2 Antigen (Rapid) Negative Medical Decision Making Additional information obtaine: old records Findings - Differential Dx:Considerations: Include: Alcohol abuse, Anxiety, Depression, Panic disorder, Personality disorder, Substance abuse, Suicidal Departure Disposition: HOME / SELF CARE / HOMELESS Impression: Primary Impression: Suicidal ideation Additional Impression: Alcoholic intoxication Qualified Codes: F10.920 - Alcohol use, unspecified with intoxication, uncomplicated Condition: Stable Discharge Instructions: Suicidal Feelings: How to Help Yourself Additional Instructions: Follow up with mental health recommendations and instructions. Referrals: NO PRIMARY CARE PROVIDER (PCP) Education Educated: Patient Educated regarding: diagnosis ACF Form Admit Criteria Met or Not Met: YES Signature Scribe Signature: 1 Attestation: The note accurately reflects work and decisions made by me.Alejandro Martel MD 05/25/25 05:34 ALEJANDRO BASS MD May 25, 2025 00:06 DREAD COOPER MD May 25, 2025 11:16 MIKE COOPER May 25, 2025 15:34
[2025-05-25 00:27] LABS: MEAN PLATELET VOLUME 6.9 FL (7.4-10.4); RED CELL DISTRIBUTION WIDTH 12.8 % (11.5-14.5)
[2025-05-25] MEDS: nicotine 14mg patch - 24hr TD ONE (00:54)
[2025-05-25 00:57] LABS: CREATININE 0.89 MG/DL (0.40-0.90); ETHANOL 255 MG/DL (<10); TOTAL CARBON DIOXIDE 27.7 MMOL/L (24-32); eCRCL 70 ML/MIN; eGFR 69 ML/MIN
[2025-05-25 02:34] LABS: URINE HCG NEGATIVE (NEG)
[2025-05-25 02:35] LABS: LEUKOCYTE ESTERASE ,URINE NEGATIVE (Neg); NITRITES, URINE NEGATIVE (Neg); OCCULT BLOOD,URINE NEGATIVE (Neg)
[2025-05-25 02:36] LABS: UA COLLECTION TYPE CLN CATCH MIDSTREAM
[2025-05-25 02:50] LABS: URINE AMPHETAMINE SCREEN NEGATIVE (Neg); URINE BARBITUATE SCREEN NEGATIVE (Neg); URINE BENZODIAZEPINES SCREEN NEGATIVE (Neg); URINE CANNABINOID SCREEN NEGATIVE (Neg); URINE COCAINE SCREEN NEGATIVE (Neg); URINE METHADONE SCREEN NEGATIVE (Neg); URINE OPIATE SCREEN NEGATIVE (Neg); URINE PHENCYCLIDINE SCREEN NEGATIVE (Neg)
[2025-05-25] MEDS: ondansetron 4mg rapidly disintigrating tab PO ONE (05:32)
[2025-05-25 16:06] VITALS: BP 120/90; PULSE 80; RESP 18; TEMP 98.6; O2SAT 99
== END 2025-05-25 16:00 | disposition home or self-care (01) ==
LOC: ER 23:41
DX: R45.851 Suicidal ideations (principal); F10.129 Alcohol abuse with intoxication, unspecified; Z91.040 Latex allergy status; I10 Essential (primary) hypertension; Z79.899 Other long term (current) drug therapy; Z87.442 Personal history of urinary calculi; Y90.8 Blood alcohol level of 240 mg/100 ml or more; Z20.822 Contact with and (suspected) exposure to COVID-19; X78.9XXA Intentional self-harm by unspecified sharp object, initial encounter; Y93.89 Activity, other specified; Y92.89 Other specified places as the place of occurrence of the external cause; Y99.8 Other external cause status
CPT/HCPCS: 36415; 80048; 80305; 80320; 81003; 81025; 84443; 85025; 87811; 99285